=== PATIENT | female | born 1985 | race Caucasian/White ===

== ENCOUNTER → 2018-04-11 09:31 | Outpatient (REF) | payer BC, SELFPAY ==
--- NOTE | 2018-04-11 08:45 | PAPFT_PTH ---
PATIENT: Laura Carrillo LOC: [facility] U#:[id number] AGE/SX: 39/F ROOM: RE04/11/[address]: Shannan Connolly NP : 1985 BED: DIS: SPEC #: [id number] RECD: 04/11/18 12:51 STATUS: ENMANUEL GALLAGHER #: [id number] BOBBY: 04/11/18 08:[address]: Shannan Connolly NP DEPT: [facility] Cytology RECD BY: Alana Hill ENTERED: 04/11/18 12:51 SP TYPE: PAPFT OT DR: Paloma Steele APRN Tissues: 1 - CX/ENDOCX FOR PAP SMEARS Procedures: PAP THIN PREP/[facility] Screening HPV DNA PROBE Comments: [id number]
== END ==
LOC: LBN 09:31
PROVIDERS: PCP Nurse Practitioner; Visit Provider Nurse Practitioner Women's Health
DX: Z12.4 Encounter for screening for malignant neoplasm of cervix (principal); Z11.51 Encounter for screening for human papillomavirus (HPV)
CPT/HCPCS: 88142; 87624

== ENCOUNTER 2018-06-21 14:22 | Outpatient (REF) | payer BC, SELFPAY | END 2018-06-21 14:42 | LOC: LBN 14:22 | PROVIDERS: PCP Nurse Practitioner; Visit Provider Student in an Organized Health Care Education/Training Program | DX: J02.9 Acute pharyngitis, unspecified (principal) | CPT/HCPCS: 87070; 87205 ==

== ENCOUNTER 2020-07-12 12:52 | Outpatient (CLI) | payer BC, SELFPAY ==
[2020-07-15 14:35] LABS: Patient Race White; SARS-CoV-2 RNA Undetected (Undetected); SARS-CoV-2 Specimen Source Nasal
== END 2020-07-12 13:12 ==
PROVIDERS: PCP Nurse Practitioner; Visit Provider Nurse Practitioner
DX: R51.9 Headache, unspecified (principal)
CPT/HCPCS: U0003

== ENCOUNTER 2020-11-15 16:08 | Outpatient (REF) | payer OTHER, SELFPAY ==
--- NOTE | 2020-11-15 15:45 | PAPFT_PTH ---
PATIENT: Laura Carrillo LOC: [facility] U#:[id number] AGE/SX: 35/F ROOM: RE11/15/[address]: SELVIN Hernandez : 1985 BED: DIS: 11/15/2020 SPEC #: [id number] RECD: 11/15/20 17:31 STATUS: MELIANanette RENikky #: [id number] BOBBY: 11/15/20 15:[address]: Deanna Sidhu DEPT: [facility] Cytology RECD BY: Alana Hill ENTERED: 11/15/20 17:31 SP TYPE: PAPFT ELVIA DR: Paloma Steele APRN Tissues: 1 - CX/ENDOCX FOR PAP SMEARS Procedures: PAP THIN PREP/[facility]VM Screening HPV DNA PROBE Comments: [id number]
== END 2020-11-15 16:09 | disposition home or self-care (01) ==
LOC: LBN 16:08
PROVIDERS: PCP Nurse Practitioner; Visit Provider Nurse Practitioner Family
DX: Z12.4 Encounter for screening for malignant neoplasm of cervix (principal); Z11.51 Encounter for screening for human papillomavirus (HPV)
CPT/HCPCS: 88142; 87624

== ENCOUNTER 2020-11-18 02:56 | Outpatient (CLI) | payer OTHER, SELFPAY ==
[2020-11-18 09:41] LABS: HCT 40.8 % (36.0-46.0); HGB 13.1 g/dL (11.2-15.7); MCH 26.1 pg (27.0-33.0); MCHC 32.1 % (32.0-36.0); MCV 81.3 fL (80-95); MPV 9.1 fL (8.0-11.0); Platelet Count 269 10^3/uL (130-400); RBC 5.02 10^6/uL (3.93-5.22); RDW-SD 38.3 fL; WBC 6.15 10^3/uL (4.4-10.8)
[2020-11-18 10:20] LABS: ALT 29 U/L (14-59); AST 14 U/L (15-37); Albumin 3.9 g/dL (3.4-5.0); Alkaline Phosphatase 63 U/L (46-116); Anion Gap 12.3 mmol/L (3-11); BUN 14 mg/dL (7-18); Bilirubin, Total 0.3 mg/dL (0.2-1.0); CO2 21.7 mmol/L (21.0-32.0); CREATININE 0.9 mg/dL (0.55-1.02); Calcium 8.8 mg/dL (8.5-10.1); Calculated LDL 110 mg/dL (<100); Chloride 107 mmol/L (98-107); Cholesterol 163 mg/dL (<200); Glucose 90 mg/dL (74-106); HDL Cholesterol 43 mg/dL (40-60); Sodium 141 mmol/L (136-145); TSH (W/Ref FT4) 1.74 uIU/mL (0.36-3.74); Total Protein 7.7 g/dL (6.4-8.2); Triglyceride 52 mg/dL (<150)
[2020-11-18 12:38] LABS: C-Reactive Protein 0.23 mg/dL (0.0-0.3)
[2020-11-18 14:06] LABS: ESR 12 mm/hr (<or=20)
[2020-11-18 16:34] LABS: Rheumatoid Factor <8.6 IU/mL (<12.0)
[2020-11-19 11:52] LABS: Lyme Ab w Rflx to Lyme Confirm Negative (Negative)
[2020-11-22 14:51] LABS: ANA Interpretation Positive (Negative)
== END 2020-11-18 02:57 | disposition home or self-care (01) ==
LOC: LBO 02:57
PROVIDERS: PCP Nurse Practitioner; Visit Provider Nurse Practitioner
DX: I10 Essential (primary) hypertension (principal); R53.83 Other fatigue; M25.59 Pain in other specified joint; M25.69 Stiffness of other specified joint, not elsewhere classified; Z13.220 Encounter for screening for lipoid disorders
CPT/HCPCS: 36415; 80053; 80061; 85027; 85652; 84443; 86038; 86140; 86431; 86618

== ENCOUNTER 2021-03-09 07:36 | Outpatient (REF) | payer OTHER, SELFPAY ==
[2021-03-09 09:29] LABS: Bilirubin Negative (Negative); Blood Trace-intact (Negative); Clarity Clear (Clear); Glucose Negative (Negative); Ketones Negative (Negative); Leukocyte Esterase Negative (Negative); Nitrite Negative (Negative); Specific Gravity 1.025 (1.005-1.025); Urobilinogen 0.2 EU/dL (Up TO 0.2)
[2021-03-09 09:47] LABS: Epithelial Cells Many HPF (Negative); WBC 0-2 HPF (0-5)
[2021-03-09 09:48] LABS: Bacteria Few HPF (Negative); C & S Indicated? No/Sq. Contamination; Casts Negative LPF (Negative); Crystals Negative HPF (Negative); Mucus Negative (Negative)
== END 2021-03-09 07:37 | disposition home or self-care (01) ==
LOC: LBN 07:36
PROVIDERS: PCP Nurse Practitioner; Visit Provider Internal Medicine
DX: M25.59 Pain in other specified joint (principal); M79.18 Myalgia, other site; R76.8 Other specified abnormal immunological findings in serum; G89.29 Other chronic pain; M25.561 Pain in right knee; M25.562 Pain in left knee; R82.998 Other abnormal findings in urine
CPT/HCPCS: 81003; 81015

== ENCOUNTER 2021-03-16 03:13 | Outpatient (CLI) | payer OTHER, SELFPAY ==
[2021-03-16 09:04] LABS: ESR 20 mm/hr (0-20)
[2021-03-16 09:05] LABS: Abs Immature Grans 0.02 10^3/uL (0.0-0.06); Absolute Basophil Count 0.05 10^3/uL (0.0-0.2); Absolute Eosinophil Count 0.15 10^3/uL (0.0-0.7); Absolute Monocyte Count 0.34 10^3/uL (0.1-0.8); Absolute Neutrophil Count 3.55 10^3/uL (1.2-6.7); Basophils % 0.9; Eosinophils % 2.8; HCT 40.5 % (36.0-46.0); HGB 13.2 g/dL (11.2-15.7); Immature Grans % 0.4; MCH 25.9 pg (27.0-33.0); MCHC 32.6 % (32.0-36.0); MCV 79.4 fL (80-95); MPV 9.1 fL (8.0-11.0); Monocytes % 6.3; Neutrophils % 65.6; Nucleated RBC 0 %; Platelet Count 279 10^3/uL (130-400); RDW 12.7 % (11.7-14.6); RDW-SD 36.3 fL; WBC 5.41 10^3/uL (4.4-10.8)
[2021-03-16 09:58] LABS: ALT 29 U/L (14-59); AST 14 U/L (15-37); Alkaline Phosphatase 65 U/L (46-116); Bilirubin, Direct 0.1 mg/dL (0.0-0.2); Bilirubin, Total 0.2 mg/dL (0.2-1.0); C-Reactive Protein 0.24 mg/dL (0.0-0.3); Total Protein 7.5 g/dL (6.4-8.2)
[2021-03-17 09:31] LABS: C3 Complement 136 mg/dL (81-157); C4 Complement 34 mg/dL (13-39)
[2021-03-17 11:01] LABS: dsDNA Ab, IgG <12.3 IU/mL (<30.0)
[2021-03-17 13:19] LABS: G6PD Enzyme Activity 11.7 U/g Hb (8.0 - 11.9)
[2021-03-17 21:09] LABS: Phospholipid Ab, IgG <9.4 GPL; Phospholipid Ab, IgM <9.4 MPL
[2021-03-18 00:02] LABS: Dilute Russell Viper Venom 34.1 secs (31.9-47.0); LA Cascade Summary (See Note); Silica Clotting Time 42.4 secs (30.2-48.4)
[2021-03-18 15:57] LABS: Beta 2 Glycoprotein 1 Ab IgA <9.4 U/mL
== END 2021-03-16 03:14 | disposition home or self-care (01) ==
LOC: LBO 03:13
PROVIDERS: PCP Nurse Practitioner; Visit Provider Internal Medicine
DX: R76.8 Other specified abnormal immunological findings in serum (principal); G89.29 Other chronic pain; M25.561 Pain in right knee; M25.562 Pain in left knee; M25.59 Pain in other specified joint; M79.18 Myalgia, other site
CPT/HCPCS: 36415; 80076; 82955; 85652; 86146; 86147; 87116; 82565; 85025; 86140; 86160; 86225

== ENCOUNTER 2021-03-28 14:36 | Outpatient (REF) | payer OTHER, SELFPAY ==
[2021-03-30 13:51] LABS: COVID-19 RT-PCR UVMMC Result Negative (Negative)
== END 2021-03-28 14:37 | disposition home or self-care (01) ==
LOC: NCHCN 14:36
PROVIDERS: PCP Nurse Practitioner; Visit Provider Family Medicine
DX: Z20.822 Contact with and (suspected) exposure to COVID-19 (principal)
CPT/HCPCS: U0003

== ENCOUNTER 2021-06-22 04:41 | Outpatient (CLI) | payer OTHER, SELFPAY ==
[2021-06-22 08:58] LABS: Abs Immature Grans 0.03 10^3/uL (0.0-0.06); Absolute Basophil Count 0.06 10^3/uL (0.0-0.2); Absolute Eosinophil Count 0.24 10^3/uL (0.0-0.7); Absolute Lymphocyte Count 1.25 10^3/uL (1.2-3.4); Absolute Monocyte Count 0.38 10^3/uL (0.1-0.8); Basophils % 0.8; Eosinophils % 3.3; HCT 39.4 % (36.0-46.0); HGB 12.6 g/dL (11.2-15.7); Immature Grans % 0.4; Lymphocytes % 17.2; MCH 25.4 pg (27.0-33.0); MCV 79.4 fL (80-95); Monocytes % 5.2; Neutrophils % 73.1; Nucleated RBC 0 %; Platelet Count 263 10^3/uL (130-400); RBC 4.96 10^6/uL (3.93-5.22); RDW 13.4 % (11.7-14.6); RDW-SD 38.6 fL; WBC 7.26 10^3/uL (4.4-10.8)
[2021-06-22 09:00] LABS: ESR 23 mm/hr (0-20)
[2021-06-22 09:07] LABS: Bilirubin Negative (Negative); Blood Negative (Negative); Clarity Clear (Clear); Glucose Negative (Negative); Ketones Negative (Negative); Leukocyte Esterase Negative (Negative); Nitrite Negative (Negative); Specific Gravity >= 1.030 (1.005-1.025); Urobilinogen 0.2 EU/dL (Up TO 0.2)
[2021-06-22 09:40] LABS: ALT 39 U/L (14-59); AST 16 U/L (15-37); Albumin 3.8 g/dL (3.4-5.0); Alkaline Phosphatase 63 U/L (46-116); Bilirubin, Direct 0.1 mg/dL (0.0-0.2); Bilirubin, Total 0.4 mg/dL (0.2-1.0); C-Reactive Protein 0.36 mg/dL (0.0-0.3); CREATININE 0.8 mg/dL (0.55-1.02); Total Protein 7.2 g/dL (6.4-8.2)
[2021-06-23 09:46] LABS: C3 Complement 130 mg/dL (81-157)
[2021-06-23 11:33] LABS: dsDNA Ab, IgG <12.3 IU/mL (<30.0)
[2021-06-23 17:55] LABS: Complement, Total 74 U/mL (30-75)
== END 2021-06-22 04:42 | disposition home or self-care (01) ==
LOC: LBO 04:41
PROVIDERS: PCP Nurse Practitioner; Visit Provider Internal Medicine
DX: M25.59 Pain in other specified joint (principal); R76.8 Other specified abnormal immunological findings in serum; M79.18 Myalgia, other site; M22.2X1 Patellofemoral disorders, right knee; M25.561 Pain in right knee; M25.562 Pain in left knee; R82.90 Unspecified abnormal findings in urine; G89.29 Other chronic pain; M22.2X2 Patellofemoral disorders, left knee
CPT/HCPCS: 36415; 80076; 85652; 81003; 82565; 85025; 86140; 86160; 86162; 86225

== ENCOUNTER 2021-07-22 10:34 | Outpatient (REF) | payer OTHER, SELFPAY ==
[2021-07-23 01:17] LABS: COVID-19 RT-PCR UVMMC Result Negative (Negative)
== END 2021-07-22 10:35 | disposition home or self-care (01) ==
LOC: NCHCN 10:34
PROVIDERS: PCP Nurse Practitioner; Visit Provider Physician Assistant Medical
DX: Z20.822 Contact with and (suspected) exposure to COVID-19 (principal)
CPT/HCPCS: U0003

== ENCOUNTER 2021-07-29 11:25 | Outpatient (REF) | payer OTHER, SELFPAY ==
[2021-07-30 02:20] LABS: COVID-19 RT-PCR UVMMC Result Negative (Negative)
== END 2021-07-29 11:26 | disposition home or self-care (01) ==
LOC: NCHCN 11:25
PROVIDERS: PCP Nurse Practitioner; Visit Provider Nurse Practitioner Family
DX: Z20.822 Contact with and (suspected) exposure to COVID-19 (principal); R09.81 Nasal congestion
CPT/HCPCS: U0003

== ENCOUNTER 2021-08-15 10:55 | Outpatient (REF) | payer OTHER, SELFPAY ==
[2021-08-16 19:50] LABS: COVID-19 RT-PCR UVMMC Result Negative (Negative)
== END 2021-08-15 10:56 | disposition home or self-care (01) ==
LOC: NCHCN 10:55
PROVIDERS: PCP Nurse Practitioner; Visit Provider Physician Assistant Medical
DX: Z20.822 Contact with and (suspected) exposure to COVID-19 (principal); R09.81 Nasal congestion
CPT/HCPCS: U0003

== ENCOUNTER 2021-09-05 18:21 | Outpatient (REF) | payer OTHER, SELFPAY ==
[2021-09-07 22:10] LABS: COVID-19 RT-PCR UVMMC Result Positive (Negative)
== END 2021-09-05 18:22 | disposition home or self-care (01) ==
LOC: NCHCN 18:21
PROVIDERS: PCP Nurse Practitioner; Visit Provider Family Medicine
DX: Z20.822 Contact with and (suspected) exposure to COVID-19 (principal); J06.9 Acute upper respiratory infection, unspecified
CPT/HCPCS: U0003

== ENCOUNTER 2021-11-23 09:21 | Outpatient (CLI) | payer OTHER, SELFPAY ==
--- NOTE | 2021-11-23 09:00 | DI.RAD_ITS ---
Exam(s) XR KNEE LT 3V AP,LAT,DEEPAK EXAM: XR KNEE LT 3V AP,LAT,DEEPAK CLINICAL HISTORY: left knee pain TECHNIQUE: COMPARISON: No exams were available for comparison FINDINGS: Three views were obtained. There may be slight narrowing of the cartilaginous joint space of the med ial tibiofemoral joint. Otherwise cartilaginous joint spaces are well maintained. No joint effusion seen on the lateral view. No bony abnormality seen. IMPRESSION: Question slight degenerative thinning of medial tibiofemoral joint space RADIATION DOSE DELIVERED: Total DLP
== END 2021-11-23 09:22 | disposition home or self-care (01) ==
LOC: DIORS 09:22
PROVIDERS: PCP Nurse Practitioner; Referring Provider Nurse Practitioner; Visit Provider Student in an Organized Health Care Education/Training Program
DX: M25.562 Pain in left knee (principal); M25.862 Other specified joint disorders, left knee
CPT/HCPCS: 73562

== ENCOUNTER 2021-12-08 01:50 | Outpatient (CLI) | payer OTHER, SELFPAY ==
--- NOTE | 2021-12-08 06:45 | DI.MRI_ITS ---
Exam(s) MR LOWER JOINT LT WO EXAM: MR LOWER JOINT LT WO CLINICAL HISTORY: LEFT KNEE PAIN,tear medial meniscus,s83.242a TECHNIQUE: Multiplanar multisequence MRI was performed.. COMPARISON: No exams were available for comparison FINDINGS: MR examination of the knee was performed according to the usual protocol. There is no significant knee joint effusion. No significant bony signal abnormality seen. Medial tibiofemoral joint: The articular cartilage of the femur and tibia appears well maintained. T he meniscus and attachments appear intact. The medial collateral ligament appears intact. No quality control projectionist omedial corner injury seen. Lateral tibiofemoral joint: The articular cartilage of the femur and tibia appears well maintained. The meniscus and attachments appear intact. The lateral collateral ligament complex and posterolater al corner structures appear intact. Patellofemoral joint and extensor mechanism: The articular cartilage of the patellofemoral joint show s mildly abnormal signal at the median ridge. Grade 2 chondromalacia. Mildly abnormal signal also s een in marrow at the median ridge period. The superior and inferior patellar fat pads appear normal with no signal abnormality. The quadriceps tendon and patellar tendon appear intact with no evidence of a tear or significant vira ma. The medial and lateral retinacula appear intact. Cruciate ligaments: The posterior cruciate ligament shows normal signal. There is abnormal signal at the tibial attachment of the anterior cruciate ligament which may represent a partial-thickness tear . Apparent tiny cysts also present adjacent to the insertion. Tibiofibular joint: No specific abnormality involving the tibiofibular joint. IMPRESSION: Grade 2 patellar chondromalacia. Possible partial-thickness tear at ACL tibial attachment. No medial meniscal tear identified. DATA REPOSITORY:
== END 2021-12-08 02:10 ==
PROVIDERS: PCP Nurse Practitioner; Visit Provider Student in an Organized Health Care Education/Training Program
DX: M25.562 Pain in left knee (principal); S83.242A Other tear of medial meniscus, current injury, left knee, initial encounter; M22.42 Chondromalacia patellae, left knee; S83.512A Sprain of anterior cruciate ligament of left knee, initial encounter
CPT/HCPCS: 73721

== ENCOUNTER 2022-12-13 02:04 | Outpatient (CLI) | payer BC, SELFPAY ==
--- NOTE | 2022-12-13 06:45 | DI.RAD_ITS ---
Exam(s) XR ANKLE LT COMPLETE EXAM: XR ANKLE LT COMPLETE CLINICAL HISTORY: evaluate pathology,lt ankle pain, m25.572 TECHNIQUE: 2D digital imaging was performed of the left ankle. Three images were obtained. AP, lat eral and oblique views were obtained. COMPARISON: No exams were available for comparison FINDINGS: BONES: No acute fracture is present. No bony destructive lesion is seen. There is a tiny enthesophyte at the posterior calcaneus. JOINTS:The ankle mortise is normally aligned. SOFT TISSUE: Normal. IMPRESSION: No acute abnormality. DATA REPOSITORY: RADIATION DOSE DELIVERED:
== END 2022-12-13 02:24 ==
LOC: DI 02:04
PROVIDERS: PCP Nurse Practitioner; Visit Provider Nurse Practitioner Family
DX: M25.572 Pain in left ankle and joints of left foot (principal)
CPT/HCPCS: 73610

== ENCOUNTER 2023-02-20 10:23 | Outpatient (REF) | payer BC, SELFPAY ==
[2023-02-20 11:15] LABS: C Diff PCR Negative (Negative)
[2023-02-21 13:30] LABS: Helicobacter pylori Ag, Feces Negative (Negative)
== END 2023-02-20 10:24 | disposition home or self-care (01) ==
LOC: NCHCN 10:23
PROVIDERS: PCP Nurse Practitioner; Visit Provider Nurse Practitioner
DX: R19.7 Diarrhea, unspecified (principal); K21.9 Gastro-esophageal reflux disease without esophagitis
CPT/HCPCS: 87338; 87493; 87505; 87177

== ENCOUNTER 2023-06-22 16:41 | Outpatient (CLI) | payer BC, SELFPAY ==
[2023-06-22 16:26] LABS: Lipase 44 U/L (16-77)
[2023-06-22 16:30] LABS: ALT 29 U/L (14-59); AST 18 U/L (15-37); Albumin 3.8 g/dL (3.4-5.0); Alkaline Phosphatase 58 U/L (46-116); Anion Gap 11.4 mmol/L (3-11); BUN 12 mg/dL (7-18); Bilirubin, Total 0.2 mg/dL (0.2-1.0); CO2 20.6 mmol/L (21.0-32.0); CREATININE 0.9 mg/dL (0.55-1.02); Calcium 9.1 mg/dL (8.5-10.1); Chloride 106 mmol/L (98-107); Estimated GFR 84.97 (mL/min/1.73m2); Glucose 89 mg/dL (74-106); Potassium 3.3 mmol/L (3.5-5.1); Sodium 138 mmol/L (136-145); Total Protein 7.7 g/dL (6.4-8.2)
[2023-06-25 10:59] LABS: HIV-1/2 Ag & Ab Screen Negative (Negative)
[2023-06-25 13:41] LABS: Hepatitis C Ab w Rflx HCV PCR Negative (Negative)
== END 2023-06-22 16:42 | disposition home or self-care (01) ==
LOC: LBO 16:41
PROVIDERS: PCP Nurse Practitioner; Visit Provider Family Medicine
DX: R10.9 Unspecified abdominal pain (principal); Z11.59 Encounter for screening for other viral diseases
CPT/HCPCS: 36415; 80053; 83690; 86803; 87389

== ENCOUNTER 2023-08-02 15:00 | Outpatient (REF) | payer BC, SELFPAY | END 2023-08-02 15:01 | disposition home or self-care (01) | LOC: LBN 15:00 | PROVIDERS: PCP Nurse Practitioner; Visit Provider Advanced Practice Midwife | DX: N93.8 Other specified abnormal uterine and vaginal bleeding (principal) | CPT/HCPCS: 87480; 87510; 87660 ==

== ENCOUNTER 2023-08-17 08:14 | Day surgery (SDC) | payer BC, SELFPAY ==
--- NOTE | 2023-08-16 19:41 | W.PM.ENDDOP ---
Date of service: 08/17/23 Time of Service: 10:13 Endoscopy Report DATE OF PROCEDURE: 08/17/23 PRE-OP DIAGNOSIS: luq pain/gerd/chronic cough POST-OP DIAGNOSIS: other (bile reflux gastritis ) SURGEON: Loulou Ellis ANESTHESIA TYPE: General:No Airway ESTIMATED BLOOD LOSS: 1 PATHOLOGY: other COMPLICATIONS: None DISPOSITION: same day PROCEDURE DESCRIPTION: After informed consent was obtained the patient was take to the procedure room and placed in a supine position. Monitors were applied and a time out was done. The patients name, date of , procedure type, allergies to medications and metal in their body was reviewed. A bite block was placed and the patient was sedated. Once sedated and comfortable the gastroscope was advanced through the oropharynx which was grossly normal into the esophagus. The proximal and mid-esophagus were normal. In the distal esophagus there was no esophageal ulcer/varices/diverticula or stricture Noted. Upon entering the stomach, it is noted that she does have some fundic polyps. 1 of these was sampled. She does have gross bile reflux through the pylorus, and bile associated gastritis. The scope was advanced into the stomach and through the pylorus into the 3rd portion of the duodenum. The duodenum was noted to be normal. Biopsies were done, all specimens are retrieved and no bleeding is noted.. The scope was retracted back into the stomach and biopsies were done to rule out H. pylori. There were no ulcers. There is some mild gastritis radiating from the antrum in a striped fashion. The scope was retroflexed. The cardia and fundus were noted to be normal. There is no hiatal hernia noted. The scope was retracted back into the esophagus and biopsies were done of the GE junction to rule out Glover's. The Z line was regular. The GE junction was at 38 cm. The scope was removed and the patient was woken up and taken back to [facility] in stable condition.
--- NOTE | 2023-08-16 19:44 | PDOC.DSDIS_ITS ---
Date of service: 08/17/23 Time of Service: 10:21 Discharge Plan Disposition Patient Disposition: Home Condition: Good Discharge Details Reason For Visit: stomach scope Attending Provider: Loulou Ellis Primary Care Provider: Paloma Steele Home Meds and New Rx's Prescriptions: New sucralfate [Carafate] 1 gram tablet 1 g PO BID Qty: 60 12RF Continued prochlorperazine maleate 5 mg tablet 5 mg PO TID PRN (Reason: headaches) Qty: 30 3RF Rx Instructions: Take 1-2 tablets every 8 hours as needed for headaches or nausea sertraline 50 mg tablet 100 mg PO DAILY Qty: 180 3RF valacyclovir 1 gram tablet 2,000 mg PO BID PRN (Reason: cold sores) Qty: 12 2RF Rx Instructions: 2 tabs BID for two doses. May use PRN. norethindrone (contraceptive) 0.35 mg tablet 0.35 mg PO DAILY Qty: 84 5RF sodium fluoride-pot nitrate [PreviDent 5000 Sensitive] 100 ML paste 100 ml Dental DAILY loratadine 10 mg tablet 10 mg PO DAILY PRN fluticasone propionate 50 mcg/actuation spray,suspension 2 spray intranasal DAILY Qty: 15.8 12RF Rx Instructions: administer into each nostril levalbuterol tartrate [Xopenex HFA] 45 mcg/actuation HFA aerosol inhaler 1 - 2 puff Inhalation q6h PRN (Reason: shortness of breath or wheezing) Qty: 1 12RF topiramate 25 mg tablet See Rx Instructions .ROUTE .COMPLEX Qty: 90 3RF Dose Instruction: TAKE 1 TABLET BY MOUTH AT BEDTIME. TAKE WITH THE 50 MG FOR A TOTAL OF 75 MG Rx Instructions: TAKE 1 TABLET BY MOUTH AT BEDTIME. TAKE WITH THE 50 MG FOR A TOTAL OF 75 MG topiramate 50 mg tablet See Rx Instructions .ROUTE .COMPLEX Qty: 90 3RF Dose Instruction: TAKE 1 TABLET BY MOUTH AT BEDTIME. TAKE WITH 25 MG FOR A TOTAL OF 75 MG Rx Instructions: TAKE 1 TABLET BY MOUTH AT BEDTIME. TAKE WITH 25 MG FOR A TOTAL OF 75 MG Discontinued pantoprazole [Protonix] 40 mg tablet,delayed release (DR/EC) 40 mg PO DAILY Qty: 90 6RF ibuprofen 200 mg tablet 800 mg PO PRN Discharge Instructions Additional Instructions: Post EGD Instruction ?You had anesthesia for your EGD/stomach scope today.? For your safety, please do the following for the next twenty-four (24) hours: Do Not operate a motor vehicle (car, truck, motorcycle, etc.) Do Not drink alcoholic beverages or use any recreational drugs for the first 24 hours or while taking pain medications. The medications in your body may have a reaction that can be dangerous. Do Not make any important decisions or sign any important papers You have just had a gastroscopy (EGD) or upper GI tract examination. It is important for your smooth recovery that you carefully follow the recommendations below. Do not hesitate to call if any questions should arise about your anesthesia, condition, or care. -Symptoms you may experience during the next 24 hours: ?1. Mild abdominal pain or excessive gas or a bloated feeling which improves with rest, liquids, eating? slightly, and walking as tolerated. 2. Drowsiness and/or forgetfulness because of the medications you were given. ?3. Throat numbness for about 1 hour. 4. A sore throat which you can treat with throat lozenges or by gargling with salt water 4-5 times a day. 5. Redness at the site of your IV which you can treat with warm compresses. SPECIAL INSTRUCTIONS: 1. You may resume your previous diet in one hour. We recommend a light meal to start, then progress as tolerated. 2. Restart regular medications in one hour. 3. No aspirin or non-steroidal containing medication for three days. 4. No lifting over 20 pounds or strenuous activity for the first 24 hours after your procedure. After 24 hours there are no restrictions on your activity, but you may feel fatigued for a few days. Findings: bile reflux gastritis Medications: carafate twice dialy -Continue to follow lifestyle modifications: No alcohol, tobacco products, Aspirin or NSAID's (ibuprofen, Motrin, Naprosyn, aleve, etc).? Try to limit/avoid:? soda pop/any carbonated beverages, caffeine (including tea & chocolate), and acidic foods, (tomatoes, citrus, onions, peppermints) spicy or fried/fatty foods. Do not lie down for 30 minutes after eating, and do not eat 2 hours prior to bedtime. Avoid wearing tight fitting clothing/ belts. Follow up: 4-6 wks Call the office at [phone] (Office) or [phone] (Hospital), or go to the ER right away if you notice any of the followin. Vomiting blood and /or ?coffee ground? material. ?2. Worsening of abdominal pain or cramping. ?3. Trouble with breathing, cough, and/or fever (temperature above 101.5 F). 4. Increasing pain with swallowing. ?5. Chest pain. 6. Any new symptoms. 7. Worsening of the redness at the IV site Stand Alone Forms: Anesthesia Discharge Hardik Viveros (DSU) Activity:: see above Diet:: see above Discharge Orders Discharge Orders: Discharge Order (Routine); Ordered 08/17/23 Ordered By: Loulou Ellis DS: Diagnosis Discharge Diagnosis (1) DUB (dysfunctional uterine bleeding): Status: Acute (2) Pelvic pain: Status: Acute (3) Asthma: Status: Chronic (4) BMI 38.0-38.9,adult: Status: Acute (5) Abdominal discomfort in left upper quadrant: Status: Acute (6) Migraine with aura: Status: Chronic (7) GERD (gastroesophageal reflux disease): Status: Chronic (8) Bile reflux gastritis: Status: Acute Asessment and Plan: Patient is seen and examined after they are endoscopy.? Patient has minimal sore throat.? They have been able to tolerate liquids.? They do not have any nausea vomiting.? They are not having any chest pain or shortness of breath.? They have been able to pass gas and are not having any abdominal pain or distention.? They have not vomited any blood.? The vital signs have been stable-see nursing notes. We discussed findings on their endoscopy. We reviewed the importance of lifestyle modification-see discharge instructions We reviewed any new medications that the patient may be prescribed-see discharge instructions Patient will either be sent a letter with the biopsy results or follow-up in the office-see discharge instructions. Patient was given explicit instructions to follow-up regarding post endoscopy- refer to discharge Patient verbalized understanding and discharged in stable and satisfactory condition.? See nursing notes.
[2023-08-17 08:27] VITALS: BP 134/89; PULSE 84; RESP 16; TEMP 36.6; O2SAT 97
[2023-08-17] MEDS: Lactated Ringers 1,000 ML 80 ML IV (08:54)
--- NOTE | 2023-08-17 09:08 | W.ANESPRE ---
General Info Date of Service Date Performed: 08/17/23 Height: 5 ft 4 in Weight: 97.4 kg Body Mass Index (BMI): 36.8 Surgical Procedure: Operation Date: 08/17/23 09:05 Proposed Procedure Side Surgeon p Gastroscopy Loulou Ellis, DO Meds Allergies and Home Medications Allergies Allergy/AdvReac Type Severity Reaction Status Date / Time albuterol sulfate AdvReac palpitation Verified 08/17/23 08:34 [From [facility]] s Home Medication Medication Instructions Recorded sodium fluoride 1.1 %-potassium 100 ml dental DAILY 05/24/17 nitrate 5 % dental paste (PreviDent 5000 Sensitive) ibuprofen 200 mg tablet 800 mg PO PRN 08/05/19 loratadine 10 mg tablet 10 mg PO DAILY PRN 08/05/19 prochlorperazine maleate 5 mg 5 mg PO TID PRN headaches #30 tabs 12/13/21 tablet fluticasone propionate 50 2 spray intranasal DAILY #15.8 mL 06/28/22 mcg/actuation nasal spray,suspension levalbuterol tartrate 45 1 - 2 puff inhalation q6h PRN 06/28/22 mcg/actuation aerosol inhaler shortness of breath or wheezing ##1 (Xopenex HFA) sertraline 50 mg tablet 100 mg (2 x 50 mg) PO DAILY #180 07/19/22 tabs valacyclovir 1 gram tablet 2,000 mg (2 x 1 gram) PO BID PRN 07/19/22 cold sores #12 tabs norethindrone (contraceptive) 0.35 0.35 mg PO DAILY #84 tabs 11/20/22 mg tablet topiramate 25 mg tablet See Rx Instructions .Route 06/19/23 .COMPLEX #90 tabs topiramate 50 mg tablet See Rx Instructions .Route 06/19/23 .COMPLEX #90 tabs pantoprazole 40 mg tablet,delayed 40 mg PO DAILY #90 tabs 07/30/23 release (Protonix) Current Visit Medications: Current Medications Generic Name Dose Route Start Last Admin Trade Name Freq PRN Reason Stop Dose Admin Hyoscyamine Sulfate 0.125 mg 08/17/23 07:39 Hyoscyamine 0.125 Mg Sl/Oral/Chew SL 09/16/23 07:38 DIRECTED PRN Ringer's Solution 1,000 mls @ 80 mls/hr 08/17/23 06:00 08/17/23 08:54 IV 08/17/23 23:59 80 mls/hr INFUSION EMERITA Administration IV Miscellaneous Supplies 1 each 08/17/23 06:00 Iv Access IV 08/17/23 23:59 DIRECTED EMERITA Ondansetron HCl 4 mg 08/17/23 07:39 Ondansetron 4 Mg/2 Ml Vial IVP 09/16/23 07:38 Q4H PRN PRN Nausea / Vomiting Sodium Chloride 0 ml 08/17/23 06:00 Normal Saline Flush 10 Ml Syr IV 08/17/23 23:59 PRN PRN Sodium Chloride 0 ml 08/17/23 06:00 Normal Saline 10 Ml Vial IJ 08/17/23 23:59 DIRECTED PRN Sterile Water 0 ml 08/17/23 06:00 Water,Injection,Sterile 10 Ml Vial IJ 08/17/23 23:59 DIRECTED PRN PFSH Active Problems Active Problems: Problem Status Onset Code Vaginal discharge N89.8 DUB (dysfunctional uterine bleeding) N93.8 Pelvic pain R10.2 Asthma J45.909 BMI 38.0-38.9,adult Z68.38 Abdominal discomfort in left upper quadrant R10.12 Paresthesia of hand, bilateral R20.2 Bilateral carpal tunnel syndrome G56.03 Neck pain of over 3 months duration M54.2 Chondromalacia, left knee M94.262 Neck pain, bilateral M54.2 Jaw pain R68.84 Status migrainosus G43.901 Abnormal urine R82.90 Chronic pain of left knee M25.562, G89.29 Chronic pain of right knee M25.561, G89.29 Patellofemoral stress syndrome M22.2X9 Myalgia M79.10 Seasonal allergic rhinitis J30.2 Paresthesia of both feet R20.2 Verruca plantaris B07.0 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 Neoplasm of uncertain behavior, unspecified D48.9 Posterior auricular pain of right ear H92.01 Positive JAMES (antinuclear antibody) R76.8 Skin lesions L98.9 Screening for cholesterol level Z13.220 Fatigue R53.83 Joint stiffness M25.60 Joint pain M25.50 Routine medical exam Z00.00 Headache R51.9 Cough R05 Migraine headache without aura G43.009 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 Oral contraceptive use 04/11/18 Z30.41 Migraine with aura 05/08/13 G43.109 GERD (gastroesophageal reflux disease) K21.9 Medical History Medical History Heartburn (05/08/13) ranitidine 150mg BID Allergic rhinitis Migraines Epistaxis Surgical History Surgical History Cholecystectomy 2006 section 08/2010 x2 Tobacco Smoking/Tobacco Use Status: Former Tobacco Use Passive smoking exposure: No Second hand exposure: No Alcohol Alcohol Intake: current Alcohol intake frequency: a few times a month Alcohol type: hard liquor Substance Use Substance use: Never Substance use type: does not use Prental History History 3 Para 3 Hx # Term Pregnancies Multiple births Hx # Pregnancies Ectopic pregnancies AB induced Hx Number of Living Children AB spontaneous Vital Signs and Lab Results Vital Signs Most Recent Vital Signs in EMR: Most Recent Vital Signs Temp Pulse Resp BP Pulse Ox 36.6 C 84 16 134/89 97 08/17/23 08:27 08/17/23 08:27 08/17/23 08:27 08/17/23 08:27 08/17/23 08:27 Point of Care Results Point of Care Results: POC- Test(urine) Negative 08/17/23 08:33 Lab Results Blood Type / Crossmatch: No Data to Display Complete Blood Count: No Data to Display Complete Metabolic Panel: No Data to Display Liver Function Panel: No Data to Display Coagulation Panel: No Data to Display Cardiac Panel: No Data to Display Arterial Blood Gas: No Data to Display Venous Blood Gas: No Data to Display Pancreas Panel: No Data to Display Thyroid Panel: No Data to Display Infectious Disease: No Data to Display Blood Cultures: No Data to Display Toxicology Panel: No Data to Display Panel: Urine HCG, Qualitative Negative 08/02/23 14:06 Imaging and Studies Imaging and Studies Study information below may be from another EMR and interpreted by another provider. Please see original notes in EMR for more complete details. Echocardiogram Summary: EF 60-65% WNL 04/17/17 Pulmonary Function Summary: IMPRESSION Normal pulmonary function study. If the diagnosis of asthma is in question, proceeding with Methacholine challenge testing may prove to be useful, therefore clinical correlation recommended. 04/19/17 Anesthesia Assessment and Plan Anesthesia History Personal History: No History of Anesthesia Complications Family History: No Family History of Anesthesia Complications Exercise Tolerance Exercise Tolerance: Metabolic Equivalents>4 Pertinent Negatives Pertinent Negatives: No Major Cardiovascular Symptoms or Complaints and No Major Pulmonary Symptoms or Complaints Cardiac & Pulmonary Exam Cardiac Exam: Normal S1/S2 Heart Sounds Pulmonary Exam: Clear Bilateral Breath Sounds Implantable Cardiac Device Does patient have a Pacemaker or an ICD?: No Airway Exam Known Difficult Airway: No Mallampati Class: 4 Mouth Opening: Normal (> 3cm) Thyromental Distance: Greater than 3 cm Neck Range of Motion: Limited ROM (limited side to side to left) Neck Circumference: Thick Teeth Condition: Normal Dentition ASA Classification ASA Score: ASA 2 Emergency Case?: No NPO Status NPO Status: NPO Clears >2 hours, Solids >8 hours Status Status: Negative HCG Anesthesia Plan Resuscitation Status: Full Code Anesthesia Technique: General Anesthesia Airway Planned: Natural Airway Monitors Used: Standard Monitors
[2023-08-17 09:34] VITALS: BMI 36.8
--- NOTE | 2023-08-17 09:56 | STOM_PTH ---
PATIENT: Laura Carrillo LOC: [facility] U#:[id number] AGE/SX: 37/F ROOM: RE08/17/[address]: Loulou Ellis : 1985 BED: DIS: 08/17/2023 SPEC #: [id number] RECD: 08/17/23 12:45 STATUS: ENMANUEL [facility] #: [id number] BOBBY: 08/17/23 09:[address]: Loulou Ellis DEPT: Surgical Specimen RECD BY: Alana Hill ENTERED: 08/17/23 12:46 SP TYPE: STOMACH OTHR DR: Paloma Steele APRN Tissues: 1 - BIOPSY BOWEL 2 - STOMACH BIOPSY 3 - STOMACH BIOPSY 4 - ESOPHAGUS BIOPSY 5 - ESOPHAGUS BIOPSY Procedures: GROSS AND MICRO LEVEL 4 Comments: [id number]
[2023-08-17 10:07] VITALS: BP 106/71; PULSE 72; RESP 16; TEMP 36.6; O2SAT 94
[2023-08-17 10:37] VITALS: BP 125/87; PULSE 68; RESP 16; TEMP 36.8; O2SAT 99
--- NOTE | 2023-08-17 11:09 | W.ANESPOSTOP ---
Postoperative Evaluation Date, Time and Location Date Performed: 08/17/23 Time Performed: 11:10 Patient Location: Day Surgery Unit Vital Signs Most Recent Imported Vital Signs: Most Recent Vital Signs Temp Pulse Resp BP Pulse Ox 36.8 C 68 16 125/87 99 08/17/23 10:37 08/17/23 10:37 08/17/23 10:37 08/17/23 10:37 08/17/23 10:37 Pain Score Most Recent Pain Score: Most Recent Pain Score Pain Level 0 08/17/23 10:37 Assessment Mental Status: Awake (Alert & Oriented to Patient Baseline) Airway and Respiratory Function: Patent airway with normal (patient baseline) respiratory exam Cardiovascular Function: Hemodynamically Stable Hydration Status: Adequately Hydrated Nausea & Vomiting: No Nausea or Vomiting Pain: Pt. Denies Any Pain Peripheral Nerve Block: Patient did not receive a nerve block
== END 2023-08-17 11:18 | disposition home or self-care (01) ==
LOC: SUR 08:14
PROVIDERS: PCP Nurse Practitioner; Visit Provider Surgery
PROC: 0DJ68ZZ Inspection of Stomach, Via Natural or Artificial Opening Endoscopic (ICD-10-PCS; CPT 43235; principal; 2023-08-17 09:00)
DX: R10.12 Left upper quadrant pain (principal); K21.00 Gastro-esophageal reflux disease with esophagitis, without bleeding; K29.60 Other gastritis without bleeding; R05.9 Cough, unspecified; K31.7 Polyp of stomach and duodenum
CPT/HCPCS: 43239; 81025; 88305; J2001; J2405

== ENCOUNTER → 2023-09-27 13:01 | Outpatient (CLI) | payer BC, SELFPAY ==
--- NOTE | 2023-09-27 12:15 | DI.RAD_ITS ---
Exam(s) XR RIBS RT W PA LAT CHEST EXAM: XR RIBS RT W PA LAT CHEST CLINICAL HISTORY: r/o fx (R rib 5/6?), RT SIDE RIB PAIN, FALL, R07.81, W19.XXXA TECHNIQUE: 2D digital imaging was performed. COMPARISON: No exams were available for comparison FINDINGS: TOTAL 6 VIEWS: RIBS 4 VIEWS-RIGHT There are no obvious acute rib fractures evident. No lytic rib lesions identified. CXR- 2 VIEWS: No lung contusion or pneumothorax. There is no pleural effusion evident. Heart size is normal and there is no significant mediastinal widening. IMPRESSION: 1. No obvious rib fractures evident. Also no significant rib lesions. 2. No ipsilateral lung nor pleural abnormality evident. No pneumothorax. DATA REPOSITORY: RADIATION DOSE DELIVERED:
--- NOTE | 2023-09-27 12:15 | DI.RAD_ITS ---
Exam(s) XR CLAVICLE RT EXAM: XR CLAVICLE RT CLINICAL HISTORY: Pain R AC joint; r/o fx, FALL, RT ANTERIOR SHOULDER PAIN, PAIN RT CLAVICLE. TECHNIQUE: 2D digital imaging was performed. COMPARISON: CR XR SHOULDER RT COMPLETE 2+V from 09/27/2023 FINDINGS: Two views. No evidence of clavicle fracture. No AC joint dislocation. Bone density normal. IMPRESSION: No clavicle fracture seen. DATA REPOSITORY: RADIATION DOSE DELIVERED:
--- NOTE | 2023-09-27 12:15 | DI.RAD_ITS ---
Exam(s) XR SHOULDER RT COMPLETE 2+V EXAM: XR SHOULDER RT COMPLETE 2+V CLINICAL HISTORY: r/o fx, FALL, RT ANTERIOR SHOULDER PAIN, PAIN RT CLAVICLE, W19.XXXA. TECHNIQUE: 2D digital imaging was performed. COMPARISON: No exams were available for comparison FINDINGS: Five views. No evidence of fracture or dislocation of the glenohumeral joint. No soft tissue calcifications nor diminution of the subacromial space. Clavicle and AC joint appear unremarkable. Coracoid process un remarkable. IMPRESSION: No significant osseous findings in the right shoulder. DATA REPOSITORY: RADIATION DOSE DELIVERED:
== END ==
PROVIDERS: PCP Nurse Practitioner; Visit Provider Nurse Practitioner Adult Health
DX: M25.511 Pain in right shoulder (principal); M89.8X1 Other specified disorders of bone, shoulder; W19.XXXA Unspecified fall, initial encounter; R07.81 Pleurodynia
CPT/HCPCS: 71046; 71100; 73000; 73030

== ENCOUNTER → 2023-11-08 02:48 | Outpatient (CLI) | payer BC, SELFPAY ==
--- NOTE | 2023-11-08 15:00 | DI.RAD_ITS ---
Exam(s) XR FOOT LT COMPLETE EXAM: XR FOOT LT COMPLETE CLINICAL HISTORY: left foot pain, toe numbness,m79.672. TECHNIQUE: 2D digital imaging was performed. COMPARISON: No exams were available for comparison FINDINGS: 3 views There is no evidence of acute fracture or diastasis of the Lisfranc joint. Great toe metatarsophalan geal joint appears unremarkable. On the medial aspect of the foot there is an osteophytic density wh ich is probably a sesamoid bone within the distal tibialis posterior tendon or accessory ossicle at t he navicular tuberosity left. There are no degenerative changes in the articulations of the foot. N o inferior calcaneal spur. No enthesophytes. Bone density normal. No pes planus. IMPRESSION: Mild findings as above. DATA REPOSITORY: RADIATION DOSE DELIVERED:
== END ==
PROVIDERS: PCP Nurse Practitioner; Visit Provider Podiatrist
DX: M79.672 Pain in left foot (principal)
CPT/HCPCS: 73630

== ENCOUNTER 2023-12-11 14:29 | Outpatient (REF) | payer BC, SELFPAY ==
--- NOTE | 2023-12-11 14:10 | PAPFT_PTH ---
PATIENT: Laura Carrillo LOC: [facility] U#:[id number] AGE/SX: 38/F ROOM: RE12/11/[address]: Shannan Connolly NP : 1985 BED: DIS: 12/11/2023 SPEC #: [id number] RECD: 12/11/23 16:53 STATUS: ENMANUEL RENikky #: [id number] BOBBY: 12/11/23 14:[address]: Shannan Connolly NP DEPT: [facility] Cytology RECD BY: Alana Hill ENTERED: 12/11/23 16:54 SP TYPE: PAPFT OT DR: Paloma Steele APRN Tissues: 1 - CX/ENDOCX FOR PAP SMEARS Procedures: PAP THIN PREP/[facility] Screening HPV DNA PROBE Comments: [id number]
== END 2023-12-11 14:30 | disposition home or self-care (01) ==
LOC: LBN 14:29
PROVIDERS: PCP Nurse Practitioner; Visit Provider Nurse Practitioner Women's Health
DX: Z01.419 Encounter for gynecological examination (general) (routine) without abnormal findings (principal); N98.8 Other complications associated with artificial fertilization; Z12.4 Encounter for screening for malignant neoplasm of cervix
CPT/HCPCS: 88142; 87624

== ENCOUNTER 2024-02-08 15:34 | Outpatient (REF) | payer BC, SELFPAY ==
[2024-02-08 16:21] LABS: Hemoglobin A1C 5.4 % (<5.7)
[2024-02-08 16:54] LABS: TSH (W/Ref FT4) 1.62 uIU/mL (0.36-3.74); Vitamin B12 677 pg/mL (193-986)
[2024-02-11 13:47] LABS: Albumin 60.3 % (55.8-66.1); Albumin g/dL 4.5 g/dL (3.6-5.2); Total Protein 7.5 g/dL (6.3-8.2)
== END 2024-02-08 15:35 | disposition home or self-care (01) ==
LOC: NCHCN 15:34
PROVIDERS: Psychiatry & Neurology Neurology; PCP Nurse Practitioner; Visit Provider Nurse Practitioner Family
DX: G62.9 Polyneuropathy, unspecified (principal); R73.9 Hyperglycemia, unspecified
CPT/HCPCS: 82607; 83036; 84165; 84443

== ENCOUNTER 2024-07-15 09:15 | Day surgery (SDC) | payer BC, SELFPAY ==
[2024-07-15] VITALS (12 sets, daily range): BP systolic 112–122; BP diastolic 72–88; PULSE 73–97; RESP 11–21; TEMP 36–37.1; O2SAT 88–100; BMI 33.6
--- NOTE | 2024-07-15 09:27 | W.PM.DSUDISC ---
Date of service: 07/15/24 Time of Service: 09:33 Discharge Plan Disposition Patient Disposition: Home Condition: Good Discharge Details Reason For Visit: Left cubital and carpal tunnel syndromes Attending Provider: Telly Engel Primary Care Provider: Paloma Steele Home Meds and New Rx's Prescriptions: New acetaminophen 500 mg tablet 1,000 mg PO Q8H PRN Qty: 90 0RF Rx Instructions: Take two tablets up to every 8 hours as needed for pain hydrocodone-acetaminophen 5-325 mg tablet 1 tab PO Q6H PRN (Reason: severe pain) Qty: 6 0RF Rx Instructions: Take one tablet up to every 6 hours as needed for severe postoperative pain ibuprofen 600 mg tablet 600 mg PO TID PRN (Reason: pain) Qty: 60 0RF Continued prochlorperazine maleate 5 mg tablet 5 mg PO TID PRN (Reason: headaches) Qty: 30 3RF Rx Instructions: Take 1-2 tablets every 8 hours as needed for headaches or nausea [place] Saline 0.65 % drops 2 drp intranasal QID PRN (Reason: dry nasal passages) Qty: 50 1RF acetylcysteine 500 mg capsule 1,000 mg PO DAILY valacyclovir 1 gram tablet 2,000 mg PO BID PRN (Reason: cold sores) Qty: 12 2RF Rx Instructions: 2 tabs BID for two doses. May use PRN. ketoconazole 2 % cream 1 applic topical DAILY Qty: 120 6RF Rx Instructions: Apply to toenails once daily semaglutide (weight loss) 2.4 mg/0.75 mL pen injector 2.4 mg subcut Q7D Qty: 3 8RF sertraline 50 mg tablet 100 mg PO DAILY Qty: 180 3RF pantoprazole [Protonix] 40 mg tablet,delayed release (DR/EC) 40 mg PO DAILY Qty: 90 3RF fluticasone propionate 50 mcg/actuation spray,suspension 2 spray intranasal DAILY Qty: 15.8 12RF Rx Instructions: administer into each nostril sodium fluoride-pot nitrate [PreviDent 5000 Sensitive] 100 ML paste 100 ml Dental DAILY loratadine 10 mg tablet 10 mg PO DAILY PRN levalbuterol tartrate [Xopenex HFA] 45 mcg/actuation HFA aerosol inhaler 1 - 2 puff Inhalation q6h PRN (Reason: shortness of breath or wheezing) Qty: 1 12RF norethindrone (contraceptive) [Jencycla] 0.35 mg tablet 0.35 mg PO DAILY Qty: 84 3RF topiramate [Topamax] 100 mg tablet 100 mg PO QHS Qty: 90 3RF Discharge Instructions Additional Instructions: Carpal Tunnel Release and Cubital Tunnel Decompression Discharge Instructions Activity: You should stay in the sling for the first 2 weeks. You may come out of the sling for gentle motion and hygiene but should largely remain in the sling to allow the incision site to heal. Gentle motion of the elbow, hand, wrist, and fingers is okay and encouraged after the first few days, but no repetitive activites nor heavy lifting. You may apply ice. Medications: - You should take Tylenol and Ibuprofen around the clock. - You have been prescribed Hydrocodone for breakthrough pain. Dressings: - The initial surgical dressing should stay in place for 3 days. It may then be removed and kept clean and dry. You should cover with a light gauze dressing. - You may shower after 3 days and get the wound wet. Follow-up: 10 days Referrals: Telly Engel MD [ [facility]YSIC[facility]] - Equipment/Supplies: Sling Activity:: Activity as Tolerated Remove Dressings/Wound Care:: 72 hours Shower/Bathe:: 72 hours Diet:: As Tolerated Discharge Orders Discharge Orders: Discharge Order (Routine); Ordered 07/15/24 Ordered By: Loulou Heck
--- NOTE | 2024-07-15 09:36 | W.PREOPHP ---
Documented by User: Loulou Heck 07/15/24 09:56 Assessment and Plan Assessment and plan (1) Left carpal tunnel syndrome: Status: Acute (2) Cubital tunnel syndrome on left: Status: Acute Assessment and plan: Plan: Educated patient on surgery covering surgical technique, recovery process, benefits and risks including but not limited to risk of infection, blood clot, damage to soft tissue/blood vessels/nerves in detail. After discussion patient gives verbal understanding of risks and elects to proceed with scheduling surgery. Patient had opportunity to have questions answered to their satisfaction. They will contact office if issues arise. Patient will continue to be scheduled for Left endoscopic carpal tunnel release and left cubital tunnel decompression with possible anterior transposition with Dr. Engel History of Present Illness Narrative: Ms. Carrillo is a 38-year-old female who presents to hospital for scheduled left carpal tunnel release and left cubital tunnel decompression with possible anterior transposition. Patient denies any medical changes since her last orthopedic appointment. For full details please review her 2 previous orthopedic notes. Denies any medical changes. Due to continued paresthesias despite adequate trial of conservative therapies she wishes to proceed with surgical intervention. Review of Systems Cardiovascular Cardiovascular: Denies chest pain and Denies dyspnea Respiratory Respiratory: Denies cough and Denies dyspnea PFSH All Active Problems Cubital tunnel syndrome on left (Acute) Left carpal tunnel syndrome (Acute) Tinea pedis (Acute) Ovarian cyst (Acute) Right. 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) RUQ abdominal pain (Acute) Bile reflux gastritis (Acute) Pelvic pain (Acute) Asthma (Chronic) BMI 38.0-38.9,adult (Acute) Paresthesia of hand, bilateral (Acute) Bilateral carpal tunnel syndrome (Acute) Neck pain of over 3 months duration (Acute) Chondromalacia, left knee (Acute) Neck pain, bilateral (Acute) Jaw pain (Acute) Status migrainosus (Acute) Chronic pain of left knee (Acute) [place] [facility] [place] Chronic pain of right knee (Acute) [place] [facility] [place] Patellofemoral stress syndrome (Acute) [place] [facility] [place]21 Myalgia (Acute) [place] [facility] [place]21 Seasonal allergic rhinitis (Acute) Paresthesia of both feet (Acute) Verruca plantaris (Acute) 12/08/20 [place] [facility] [place] 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) 12/08/20 [facility] [place] Neoplasm of uncertain behavior, unspecified (Acute) 12/08/20 [facility] [place] done Posterior auricular pain of right ear (Acute) 12/08/20 [facility] [place] - pressure reducing strategies provided Positive JAMES (antinuclear antibody) (Acute) Skin lesions (Acute) Screening for cholesterol level (Acute) Fatigue (Acute) Joint stiffness (Acute) Joint pain (Acute) Routine medical exam (Acute) Headache (Acute) Cough (Acute) Migraine headache without aura (Acute) 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 Results will not change outcome. Migraine with aura (Chronic 05/08/13) Rare; Visual auras NEG MRI 2012 GERD (gastroesophageal reflux disease) (Chronic) Medical History Abnormal [place] [facility] [place] Abdominal discomfort in left upper quadrant Heartburn (05/08/13) ranitidine 150mg BID Allergic rhinitis Migraines Epistaxis Surgical History History of esophagogastroduodenoscopy (~07/2023) path Cholecystectomy 2006 section 08/2010 x2 Family History Mother Essential hypertension Father Rheumatoid arthritis Esophageal cyst Sister Diabetes Not sure type Brain tumor (benign) Sister Essential hypertension Asthma Paternal Grandmother , of PE Diabetes Pulmonary embolism Maternal Grandfather Myocardial infarct Social History Smoking/Tobacco Use Status: Former Tobacco Use Quit Date: 08/27/08 Tobacco: How many years used: 5 Second Hand Exposure: No Smoking risk assessment performed?: Yes Alcohol Intake: current Alcohol Intake frequency: a few times a month Alcohol type: hard liquor Drug use: Never Substance use type: does not use Adopted: No Caregiver/Support person: No Foster care: No Household members: spouse and children Housing: house Number of Children: 2 number of grandchildren: 0 Communication Needs: None Education Level: middle school Do you need help understanding health information?: Rarely 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 Pets and animals: Yes (cats, dogs, rabbit, chicken) Sexually active: Yes Do you think of yourself as: straight/heterosexual Current gender identity: female What is your relationship status?: How often do you talk on the phone with friends or family?: once per week How often do you get together with friends or relatives?: once per week Do you belong to any clubs or organized social groups?: no Panel score (0-1 are the most socially isolated patients): 1 What type of physical activity do you participate in: walking Duration: 15-30 minutes/day Frequency: 1-2 times per week Special curtis needs: No Seatbelt use: always Helmet use: Yes Helmet use: always Drive intox or ride w/intox pile driver: No Working smoke detector in home: Yes Fire extinguisher in home: Yes Carbon monox detector in home: Yes Do you feel safe at home: Yes Do you feel safe in your relationship?: Yes Victim of physical abuse: No Victim of emotional abuse: No Female Reproductive History Menstrual control method: other (partner with vasectomy) History History 3 Para 3 Hx # Term Pregnancies Multiple births Hx # Pregnancies Ectopic pregnancies AB induced Hx Number of Living Children AB spontaneous Meds Allergies and Home Medications Allergies Allergy/AdvReac Type Severity Reaction Status Date / Time albuterol sulfate (From AdvReac palpitation Verified 07/15/24 09:46 Ventolin HFA) s Home Medications ?Medication ?Instructions ?Recorded ?Confirmed ?Type sodium fluoride 1.1 %-potassium 100 ml dental DAILY 05/24/17 07/15/24 History nitrate 5 % dental paste (PreviDent 5000 Sensitive) loratadine 10 mg tablet 10 mg PO DAILY PRN 08/05/19 07/15/24 History levalbuterol tartrate 45 1 - 2 puff inhalation q6h PRN 06/28/22 07/15/24 Rx mcg/actuation aerosol inhaler shortness of breath or wheezing ##1 (Xopenex HFA) sodium chloride 0.65 % nasal drops 2 drp intranasal QID PRN dry nasal 11/22/23 07/15/24 Rx ([place] Saline) passages #50 mL acetylcysteine 500 mg capsule 1,000 mg PO DAILY 11/26/23 07/15/24 History valacyclovir 1 gram tablet 2,000 mg (2 x 1 gram) PO BID PRN 12/04/23 07/15/24 Rx cold sores #12 tabs norethindrone (contraceptive) 0.35 0.35 mg PO DAILY #84 tabs 02/26/24 07/15/24 Rx mg tablet (Jencycla) prochlorperazine maleate 5 mg 5 mg PO TID PRN headaches #30 tabs 04/22/24 07/15/24 Rx tablet ketoconazole 2 % topical cream 1 applic topical DAILY #120 grams 06/10/24 07/15/24 Rx topiramate 100 mg tablet (Topamax) 100 mg PO QHS #90 tabs 06/17/24 07/15/24 Rx fluticasone propionate 50 2 spray intranasal DAILY #15.8 mL 07/01/24 07/15/24 Rx mcg/actuation nasal spray,suspension pantoprazole 40 mg tablet,delayed 40 mg PO DAILY #90 tabs 07/01/24 07/15/24 Rx release (Protonix) semaglutide (weight loss) 2.4 2.4 mg (0.75 mL) subcut Q7D #3 mL 07/01/24 07/15/24 Rx mg/0.75 mL subcutaneous pen injector sertraline 50 mg tablet 100 mg (2 x 50 mg) PO DAILY #180 07/01/24 07/15/24 Rx tabs acetaminophen 500 mg tablet 1,000 mg (2 x 500 mg) PO Q8H PRN 07/15/24 Rx pain #90 tabs hydrocodone 5 mg-acetaminophen 325 1 tab PO Q6H PRN severe pain #6 07/15/24 Rx mg tablet tabs ibuprofen 600 mg tablet 600 mg PO TID PRN pain #60 tabs 07/15/24 Rx semaglutide (weight loss) 1.7 mg subcut 07/15/24 History mg/0.75 mL subcutaneous pen injector ([place]) Exam Const General: cooperative, comfortable and no acute distress Resp Auscultation: clear to auscultation bilaterally, no rales, no rhonchi and no wheezes Cardio Heart Sounds: S1 normal and S2 normal Documented by User: Telly Engel MD 07/16/24 07:34 Assessment and Plan Assessment and plan (1) Left carpal tunnel syndrome: Status: Acute (2) Cubital tunnel syndrome on left: Status: Acute Assessment and plan: Plan: Educated patient on surgery covering surgical technique, recovery process, benefits and risks including but not limited to risk of infection, blood clot, damage to soft tissue/blood vessels/nerves in detail. After discussion patient gives verbal understanding of risks and elects to proceed with scheduling surgery. Patient had opportunity to have questions answered to their satisfaction. They will contact office if issues arise. Patient will continue to be scheduled for Left endoscopic carpal tunnel release and left cubital tunnel decompression with possible anterior transposition with Dr. Engel I interviewed and examined the patient with Loulou Heck PA-C. I agree with the documentation as above. The assessment and plan were formulated with my direct involvement. Laura is a 38-year-old female who has ongoing pain and numbness and tingling about the left arm. Please see the previous office note for complete detailed history. However, she is here today for carpal tunnel and cubital tunnel release. I did discuss surgical details. I would perform an anterior transposition of the ulnar nerve if necessary after decompression. I reviewed the risk of the procedure to include bleeding, infection, pain, stiffness, persistent numbness, incomplete release, need for repeat procedures. Despite these risk, she elects to proceed. Telly Engel MD FAAOS FAAHKS PFSH All Active Problems Cubital tunnel syndrome on left (Acute) Left carpal tunnel syndrome (Acute) Tinea pedis (Acute) Ovarian cyst (Acute) Right. 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) RUQ abdominal pain (Acute) Bile reflux gastritis (Acute) Pelvic pain (Acute) Asthma (Chronic) BMI 38.0-38.9,adult (Acute) Paresthesia of hand, bilateral (Acute) Bilateral carpal tunnel syndrome (Acute) Neck pain of over 3 months duration (Acute) Chondromalacia, left knee (Acute) Neck pain, bilateral (Acute) Jaw pain (Acute) Status migrainosus (Acute) Chronic pain of left knee (Acute) [place] [facility] [place] Chronic pain of right knee (Acute) [place] [facility] [place] Patellofemoral stress syndrome (Acute) [place] [facility] [place]21 Myalgia (Acute) [place] [facility] [place]/21 Seasonal allergic rhinitis (Acute) Paresthesia of both feet (Acute) Verruca plantaris (Acute) 12/08/20 [place] [facility] [place] 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) 12/08/20 [facility] [place] Neoplasm of uncertain behavior, unspecified (Acute) 12/08/20 [facility] [place] biopsy done Posterior auricular pain of right ear (Acute) 12/08/20 [facility] [place] - pressure reducing strategies provided Positive JAMES (antinuclear antibody) (Acute) Skin lesions (Acute) Screening for cholesterol level (Acute) Fatigue (Acute) Joint stiffness (Acute) Joint pain (Acute) Routine medical exam (Acute) Headache (Acute) Cough (Acute) Migraine headache without aura (Acute) 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 Results will not change outcome. Migraine with aura (Chronic 05/08/13) Rare; Visual auras NEG MRI 2012 GERD (gastroesophageal reflux disease) (Chronic) Medical History Abnormal [place] [facility] [place] Abdominal discomfort in left upper quadrant Heartburn (05/08/13) ranitidine 150mg BID Allergic rhinitis Migraines Epistaxis Surgical History History of esophagogastroduodenoscopy (~07/2023) path Cholecystectomy 2006 section 08/2010 x2 Family History Mother Essential hypertension Father Rheumatoid arthritis Esophageal cyst Sister Diabetes Not sure type Brain tumor (benign) Sister Essential hypertension Asthma Paternal Grandmother , of PE Diabetes Pulmonary embolism Maternal Grandfather Myocardial infarct Social History Smoking/Tobacco Use Status: Former Tobacco Use Quit Date: 08/27/08 Tobacco: How many years used: 5 Second Hand Exposure: No Smoking risk assessment performed?: Yes Alcohol Intake: current Alcohol Intake frequency: a few times a month Alcohol type: hard liquor Drug use: Never Substance use type: does not use Adopted: No Caregiver/Support person: No Foster care: No Household members: spouse and children Housing: house Number of Children: 2 number of grandchildren: 0 Communication Needs: None Education Level: middle school Do you need help understanding health information?: Rarely 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 Pets and animals: Yes (cats, dogs, rabbit, chicken) Sexually active: Yes Do you think of yourself as: straight/heterosexual Current gender identity: female What is your relationship status?: How often do you talk on the phone with friends or family?: once per week How often do you get together with friends or relatives?: once per week Do you belong to any clubs or organized social groups?: no Panel score (0-1 are the most socially isolated patients): 1 What type of physical activity do you participate in: walking Duration: 15-30 minutes/day Frequency: 1-2 times per week Special curtis needs: No Seatbelt use: always Helmet use: Yes Helmet use: always Drive intox or ride w/intox pile driver: No Working smoke detector in home: Yes Fire extinguisher in home: Yes Carbon monox detector in home: Yes Do you feel safe at home: Yes Do you feel safe in your relationship?: Yes Victim of physical abuse: No Victim of emotional abuse: No History History 3 Para 3 Hx # Term Pregnancies Multiple births Hx # Pregnancies Ectopic pregnancies AB induced Hx Number of Living Children AB spontaneous Meds Allergies and Home Medications Allergies Allergy/AdvReac Type Severity Reaction Status Date / Time albuterol sulfate (From AdvReac palpitation Verified 07/15/24 09:46 Ventolin HFA) s Home Medications ?Medication ?Instructions ?Recorded ?Confirmed ?Type sodium fluoride 1.1 %-potassium 100 ml dental DAILY 05/24/17 07/15/24 History nitrate 5 % dental paste (PreviDent 5000 Sensitive) loratadine 10 mg tablet 10 mg PO DAILY PRN 08/05/19 07/15/24 History levalbuterol tartrate 45 1 - 2 puff inhalation q6h PRN 06/28/22 07/15/24 Rx mcg/actuation aerosol inhaler shortness of breath or wheezing ##1 (Xopenex HFA) sodium chloride 0.65 % nasal drops 2 drp intranasal QID PRN dry nasal 11/22/23 07/15/24 Rx ([place] Saline) passages #50 mL acetylcysteine 500 mg capsule 1,000 mg PO DAILY 11/26/23 07/15/24 History valacyclovir 1 gram tablet 2,000 mg (2 x 1 gram) PO BID PRN 12/04/23 07/15/24 Rx cold sores #12 tabs norethindrone (contraceptive) 0.35 0.35 mg PO DAILY #84 tabs 02/26/24 07/15/24 Rx mg tablet (Jencycla) prochlorperazine maleate 5 mg 5 mg PO TID PRN headaches #30 tabs 04/22/24 07/15/24 Rx tablet ketoconazole 2 % topical cream 1 applic topical DAILY #120 grams 06/10/24 07/15/24 Rx topiramate 100 mg tablet (Topamax) 100 mg PO QHS #90 tabs 06/17/24 07/15/24 Rx fluticasone propionate 50 2 spray intranasal DAILY #15.8 mL 07/01/24 07/15/24 Rx mcg/actuation nasal spray,suspension pantoprazole 40 mg tablet,delayed 40 mg PO DAILY #90 tabs 07/01/24 07/15/24 Rx release (Protonix) semaglutide (weight loss) 2.4 2.4 mg (0.75 mL) subcut Q7D #3 mL 07/01/24 07/15/24 Rx mg/0.75 mL subcutaneous pen injector sertraline 50 mg tablet 100 mg (2 x 50 mg) PO DAILY #180 07/01/24 07/15/24 Rx tabs acetaminophen 500 mg tablet 1,000 mg (2 x 500 mg) PO Q8H PRN 07/15/24 Rx pain #90 tabs hydrocodone 5 mg-acetaminophen 325 1 tab PO Q6H PRN severe pain #6 07/15/24 Rx mg tablet tabs ibuprofen 600 mg tablet 600 mg PO TID PRN pain #60 tabs 07/15/24 Rx semaglutide (weight loss) 1.7 mg subcut 07/15/24 History mg/0.75 mL subcutaneous pen injector (Alex)
--- NOTE | 2024-07-15 09:48 | W.ANESPRE ---
General Info Date of Service Date Performed: 07/15/24 Height: 5 ft 4 in Weight: 88.904 kg Body Mass Index (BMI): 33.6 Surgical Procedure: Operation Date: 07/15/24 12:10 Proposed Procedure Side Surgeon p Cubital Tunnel Release Left Telly Engel MD s Wrist ECTR Left Telly Engel MD Actual Procedure Side Surgeon p Cubital Tunnel Release Left Telly Engel MD s Wrist ECTR Left Telly Engel MD Pre-Op Diagnosis Post-Op Diagnosis LEFT CARPAL AND CUBITAL TUNNEL SYNDROME Meds Allergies and Home Medications Allergies Allergy/AdvReac Type Severity Reaction Status Date / Time albuterol sulfate (From AdvReac palpitation Verified 07/15/24 09:46 Ventolin HFA) s Home Medication ?Medication ?Instructions ?Recorded sodium fluoride 1.1 %-potassium 100 ml dental DAILY 05/24/17 nitrate 5 % dental paste (PreviDent 5000 Sensitive) loratadine 10 mg tablet 10 mg PO DAILY PRN 08/05/19 levalbuterol tartrate 45 1 - 2 puff inhalation q6h PRN 06/28/22 mcg/actuation aerosol inhaler shortness of breath or wheezing ##1 (Xopenex HFA) sodium chloride 0.65 % nasal drops 2 drp intranasal QID PRN dry nasal 11/22/23 (Raphine Saline) passages #50 mL acetylcysteine 500 mg capsule 1,000 mg PO DAILY 11/26/23 valacyclovir 1 gram tablet 2,000 mg (2 x 1 gram) PO BID PRN 12/04/23 cold sores #12 tabs norethindrone (contraceptive) 0.35 0.35 mg PO DAILY #84 tabs 02/26/24 mg tablet (Jencycla) prochlorperazine maleate 5 mg 5 mg PO TID PRN headaches #30 tabs 04/22/24 tablet ketoconazole 2 % topical cream 1 applic topical DAILY #120 grams 06/10/24 topiramate 100 mg tablet (Topamax) 100 mg PO QHS #90 tabs 06/17/24 fluticasone propionate 50 2 spray intranasal DAILY #15.8 mL 07/01/24 mcg/actuation nasal spray,suspension pantoprazole 40 mg tablet,delayed 40 mg PO DAILY #90 tabs 07/01/24 release (Protonix) semaglutide (weight loss) 2.4 2.4 mg (0.75 mL) subcut Q7D #3 mL 07/01/24 mg/0.75 mL subcutaneous pen injector sertraline 50 mg tablet 100 mg (2 x 50 mg) PO DAILY #180 07/01/24 tabs acetaminophen 500 mg tablet 1,000 mg (2 x 500 mg) PO Q8H PRN 07/15/24 pain #90 tabs hydrocodone 5 mg-acetaminophen 325 1 tab PO Q6H PRN severe pain #6 07/15/24 mg tablet tabs ibuprofen 600 mg tablet 600 mg PO TID PRN pain #60 tabs 07/15/24 semaglutide (weight loss) 1.7 mg subcut 07/15/24 mg/0.75 mL subcutaneous pen injector (Wegovy) Current Visit Medications: Current Medications Generic Name Dose Route Start Last Admin Trade Name Freq PRN Reason Stop Dose Admin Acetaminophen 1,000 mg 07/15/24 06:00 Acetaminophen 500 Mg Tab PO 07/15/24 23:59 PREOP [facility] Acetaminophen 650 mg 07/15/24 09:26 Acetaminophen 325 Mg Tab PO 08/14/24 09:25 Q4H PRN PRN Hydrocodone Bitart/Acetaminophen 0 tab 07/15/24 09:26 Hydrocodone 5/Acetaminophen 325 Tab PO 08/14/24 09:25 Q3H PRN PRN Pain Celecoxib 400 mg 07/15/24 06:00 Celecoxib 200 Mg Cap PO 07/15/24 23:59 PREOP [facility] Ringer's Solution 1,000 mls @ 80 mls/hr 07/15/24 06:00 IV 07/15/24 23:59 INFUSION [facility] Cefazolin Sodium/Dextrose 2 gm in 50 mls @ 100 mls/hr 07/15/24 06:00 Ancef Duplex IVPB 07/15/24 23:59 PREOP [facility] Tranexamic Acid 1,000 mg/ 60 mls @ 360 mls/hr 07/15/24 07:00 Sodium Chloride IVPB 07/15/24 16:00 PREOP [facility] IV Miscellaneous Supplies 1 each 07/15/24 06:00 Iv Access IV 07/15/24 23:59 DIRECTED [facility] Sodium Chloride 0 ml 07/15/24 06:00 Normal Saline Flush 10 Ml Syr IV 07/15/24 23:59 PRN PRN Sodium Chloride 0 ml 07/15/24 06:00 Normal Saline 10 Ml Vial IJ 07/15/24 23:59 DIRECTED PRN Sterile Water 0 ml 07/15/24 06:00 Water,Injection,Sterile 10 Ml Vial IJ 07/15/24 23:59 DIRECTED PRN PFSH Active Problems Active Problems: Problem Status Onset Code Cubital tunnel syndrome on left Acute G56.22 Left carpal tunnel syndrome Acute G56.02 Tinea pedis Acute B35.3 Ovarian cyst Acute N83.209 Cubital tunnel syndrome of both upper extremities Acute G56.23 Peripheral neuropathy Acute G62.9 Tarsal tunnel syndrome of left side Acute G57.52 Left ankle sprain Acute S93.402A Posterior tibial tendinitis of left leg Acute M76.822 Peroneal tendinitis of left lower extremity Acute M76.72 Upper respiratory tract infection Acute J06.9 Achilles tendon contracture, bilateral Acute M67.01, M67.02 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 Acute G57.62 RUQ abdominal pain Acute R10.11 Bile reflux gastritis Acute K29.60 Pelvic pain Acute R10.2 Asthma Chronic J45.909 BMI 38.0-38.9,adult Acute Z68.38 Paresthesia of hand, bilateral Acute R20.2 Bilateral carpal tunnel syndrome Acute G56.03 Neck pain of over 3 months duration Acute M54.2 Chondromalacia, left knee Acute M94.262 Neck pain, bilateral Acute M54.2 Jaw pain Acute R68.84 Status migrainosus Acute G43.901 Chronic pain of left knee Acute M25.562, G89.29 Chronic pain of right knee Acute M25.561, G89.29 Patellofemoral stress syndrome Acute M22.2X9 Myalgia Acute M79.10 Seasonal allergic rhinitis Acute J30.2 Paresthesia of both feet Acute R20.2 Verruca plantaris Acute B07.0 Chondrodermatitis nodularis helicis of right ear Acute H61.001 Neoplasm of uncertain behavior, unspecified Acute D48.9 Posterior auricular pain of right ear Acute H92.01 Positive JAMES (antinuclear antibody) Acute R76.8 Skin lesions Acute L98.9 Screening for cholesterol level Acute Z13.220 Fatigue Acute R53.83 Joint stiffness Acute M25.60 Joint pain Acute M25.50 Routine medical exam Acute Z00.00 Headache Acute R51.9 Cough Acute R05 Migraine headache without aura Acute G43.009 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 Migraine with aura Chronic 05/08/13 G43.109 GERD (gastroesophageal reflux disease) Chronic K21.9 Medical History Medical History Abnormal urine [place] [facility] 05[place]05[place]21 Abdominal discomfort in left upper quadrant Heartburn (05/08/13) ranitidine 150mg BID Allergic rhinitis Migraines Epistaxis Surgical History Surgical History History of esophagogastroduodenoscopy (~07/2023) path Cholecystectomy 2006 section 08/2010 x2 Tobacco Smoking/Tobacco Use Status: Former Tobacco Use Passive smoking exposure: No Second hand exposure: No Alcohol Alcohol Intake: current Alcohol intake frequency: a few times a month Alcohol type: hard liquor Substance Use Substance use: Never Substance use type: does not use Prental History History 3 Para 3 Hx # Term Pregnancies Multiple births Hx # Pregnancies Ectopic pregnancies AB induced Hx Number of Living Children AB spontaneous Vital Signs and Lab Results Vital Signs Most Recent Vital Signs in EMR: Temp Pulse Resp BP Pulse Ox 36.6 C 91 H 20 120/77 99 07/15/24 09:20 07/15/24 09:20 07/15/24 09:20 07/15/24 09:20 07/15/24 09:20 Lab Results Blood Type / Crossmatch: No Data to Display Complete Blood Count: No Data to Display Complete Metabolic Panel: No Data to Display Liver Function Panel: No Data to Display Coagulation Panel: No Data to Display Cardiac Panel: No Data to Display Arterial Blood Gas: No Data to Display Venous Blood Gas: No Data to Display Pancreas Panel: No Data to Display Thyroid Panel: No Data to Display Infectious Disease: No Data to Display Blood Cultures: No Data to Display Toxicology Panel: No Data to Display Panel: No Data to Display Imaging and Studies Imaging and Studies Study information below may be from another EMR and interpreted by another provider. Please see original notes in EMR for more complete details. Echocardiogram Summary: Patient Name: WILFREDO BLACKWELL Unit #: [id number] Loc: DI Ordering Provider: Serenity Baker RENTAL COUNTER CLERK Status: REG CLI Primary Care Provider: Paloma Armstrong NP Date of Exam: 04/17/17 Sex: F : 1985 Age: 31 Exam(s) [id number] US:Echocardiogram Heart *[facility]* *[facility]* [address] [place] [address] Date of study: 04/17/2017 Transthoracic Echocardiography M-mode, complete 2D, complete spectral Doppler, and color Doppler *STUDY CONCLUSIONS* Summary: 1. Left ventricle: The cavity size was normal. Wall thickness was normal. Systolic function was normal. The estimated ejection fraction was 60-65%. Wall motion was normal; there were no regional wall motion abnormalities. The outflow tract showed no obstruction. 2. Right ventricle: The cavity size was normal. Wall thickness was normal. Systolic function was normal. *PATIENT PRESENTATION* Height: 162.6cm ((64in) ) S/D Pressure: 126 / 89 Weight: 99.8kg ((219.5lb) ) BSA: 2.17m^2 Test start time: 02:30 PM. Test stop time: 03:30 PM. PERFORMING Unknown PERFORMING [facility] BRYOLOGIST Magaly Tomas ORDERING Serenity Baker REFERRING Serenity Baker *PROCEDURE DATA* Procedure information: This study was interpreted by [facility]. Pertinent images and digital data are archived for permanent storage and are available for subsequent review. No prior study was available for comparison. Study status: Routine. Transthoracic echocardiography. M-mode, complete 2D, complete spectral Doppler, and color Doppler. A Transthoracic Echocardiogram was performed. Scanning was performed from the parasternal, apical, subcostal, and suprasternal notch acoustic windows. Images were obtained using an [id number] cardiac ultrasound machine. Image quality was adequate. Study completion: The patient tolerated the procedure well. There were no complications. History: PMH: Dizziness/pre-syncope rule out structural cardiac problem. SOB. *CARDIAC ANATOMY* Left ventricle: The cavity size was normal. Wall thickness was normal. Systolic function was normal. The estimated ejection fraction was 60-65%. Wall motion was normal; there were no regional wall motion abnormalities. The outflow tract showed no obstruction. Diastolic parameters were normal. Aortic valve: Trileaflet; normal thickness leaflets. Mobility was not restricted. Doppler: Transvalvular velocity was within the normal range. There was no stenosis. There was no regurgitation. Valve area (VTI): 3.1cm^2. Indexed valve area (VTI): 1.4cm^2/m^2. Peak velocity ratio of LVOT to aortic valve: 0.81. Valve area (Vmax): 3.1cm^2. Indexed valve area (Vmax): 1.4cm^2/m^2. Mean gradient (S): 4.5mm Hg. Peak gradient (S): 8mm Hg. Aorta: Aortic root: The aortic root was normal in size. Ascending aorta: The ascending aorta was normal in size. Mitral valve: Structurally normal valve. Mobility was not restricted. Doppler: Transvalvular velocity was within the normal range. There was no evidence for stenosis. There was trivial regurgitation. Valve area by pressure half-time: 4.6cm^2. Indexed valve area by pressure half-time: 2.1cm^2/m^2. Peak gradient (D): 3.7mm Hg. Left atrium: The atrium was normal in size. Right ventricle: The cavity size was normal. Wall thickness was normal. Systolic function was normal. Pulmonic valve: Doppler: Transvalvular velocity was within the normal range. There was no evidence for stenosis. There was no significant regurgitation. Peak gradient (S): 5.9mm Hg. Tricuspid valve: Structurally normal valve. Doppler: Transvalvular velocity was within the normal range. There was no evidence for stenosis. There was trivial regurgitation. Pulmonary artery: Pulmonary systolic pressure was within the normal range, in the range of 25mm Hg to 30mm Hg. Right atrium: The atrium was normal in size. Pericardium: There was no pericardial effusion. Systemic veins: Inferior vena cava: The vessel was normal in size. Measurements Left ventricle Value Reference LV ID, ED, PLAX 4.7 cm 3.5 - 6.0 LV ID, ES, PLAX 3.4 cm 2.1 - 4.0 LV PW thickness, ED, PLAX 0.9 cm LV end-diastolic volume, 1-p A2C 103 ml LV ejection fraction, 1-p A2C 59 % LV end-diastolic volume, 1-p A4C 109 ml LV ejection fraction, 1-p A4C 65 % Ventricular septum Value Reference IVS thickness, ED, PLAX 0.9 cm LVOT Value Reference LVOT ID, A-P 2.2 cm LVOT area 3.8 cm^2 LVOT peak velocity, S 1.17 m/sec LVOT VTI, S 23.9 cm LVOT peak gradient, S 5.5 mm Hg LVOT mean gradient, S 2.4 mm Hg Aortic valve Value Reference Aortic mean gradient, S 4.5 mm Hg Aortic peak gradient, S 8 mm Hg Aortic valve area, VTI 3.1 cm^2 Velocity ratio, peak, LVOT/AV 0.81 Aortic valve area, peak velocity 3.1 cm^2 Aorta Value Reference Aortic root ID, ED 2.9 cm Ascending aorta ID, A-P, S 2.9 cm RVOT Value Reference RVOT VTI, S 20.5 cm Left atrium Value Reference LA area, ES, A4C 23 cm^2 8.8 - 23.4 LA volume/bsa, ES, 1-p A4C 35 ml/m^2 LA/aortic root ratio 1.18 Mitral valve Value Reference Mitral E-wave peak velocity 0.96 m/sec Mitral A-wave peak velocity 0.68 m/sec Mitral pressure half-time 48 ms Mitral peak gradient, D 3.7 mm Hg Mitral E/A ratio, peak 1.41 Mitral valve area, PHT, DP 4.6 cm^2 Pulmonary veins Value Reference Pulmonary vein peak velocity, S 0.54 m/sec Pulmonary vein peak velocity, D 0.53 m/sec Pulmonary vein velocity ratio, peak, 1.01 S/D Pulmonary vein A-wave reversal peak 0.38 m/sec velocity Tricuspid valve Value Reference Tricuspid regurg peak velocity 2.3 m/sec Tricuspid peak RV-RA gradient 21.4 mm Hg Right atrium Value Reference RA area, ES, A4C 16.5 cm^2 8.3 - 19.5 Pulmonic valve Pulmonary Function Summary: PATIENT NAME: WILFREDO BLACKWELL UNIT #: [id number] ADMITTING PROVIDER: FAVIO TAPIA MD PRIMARY CARE PROVIDER: PALOMA ARMSTRONG NP DATE OF ADMIT: 04/19/17 : 1985 PULMONARY FUNCTION TEST REPORT DATE OF SERVICE April 19, 2017 IMPRESSION Normal pulmonary function study. If the diagnosis of asthma is in question, proceeding with Methacholine challenge testing may prove to be useful, therefore clinical correlation recommended. REQUESTING PROVIDER Serenity Baker N.P. INTERPRETATION OF STUDY Spirometry shows no evidence of obstructive airways disease. No bronchodilator response. LUNG VOLUMES - Lung volumes show no evidence of restriction. DIFFUSION CAPACITY- Normal. AIRWAY RESISTANCE - Normal. Meghan Dillon DD - 04/23/2017 DT - 04/23/2017 document embedded image Anesthesia Assessment and Plan Anesthesia History Personal History: No History of Anesthesia Complications Family History: No Family History of Anesthesia Complications Exercise Tolerance Exercise Tolerance: Metabolic Equivalents>4 Pertinent Negatives Pertinent Negatives: No Symptoms of GERD, No Major Cardiovascular Symptoms or Complaints, No Major Pulmonary Symptoms or Complaints (mild asthma) and No History of CVA/TIA Cardiac & Pulmonary Exam Cardiac Exam: Normal S1/S2 Heart Sounds Pulmonary Exam: Clear Bilateral Breath Sounds Implantable Cardiac Device Does patient have a Pacemaker or an ICD?: No Airway Exam Known Difficult Airway: No Mallampati Class: 2 Mouth Opening: Normal (> 3cm) Thyromental Distance: Greater than 3 cm Neck Range of Motion: Full ROM Neck Circumference: Normal Teeth Condition: Normal Dentition and Loose or Chipped Tooth Numberin. chipped 2. chipped 3. Patient reports abscess treated with abx, dentist plans a root canal. Discussed added risk to this region and patient aware. ASA Classification ASA Score: ASA 2 Emergency Case?: No NPO Status NPO Status: NPO Clears >2 hours, Solids >8 hours Status Status: Negative HCG Anesthesia Plan Resuscitation Status: Full Code Anesthesia Technique: General Anesthesia Airway Planned: LMA Monitors Used: Standard Monitors
[2024-07-15] MEDS: Acetaminophen 500 MG TAB 1000 MG PO (09:58)
[2024-07-15] MEDS: Normal Saline Flush 10 ML SYR IV (09:59)
[2024-07-15] MEDS: Celecoxib 200 MG CAP 400 MG PO (09:59)
[2024-07-15] MEDS: ceFAZolin 2 GM/50 ML BAG IVPB (10:26)
[2024-07-15] MEDS: Bupivacaine 0.25% Pres-Free W/EPI 30 ML VIAL (10:45)
--- NOTE | 2024-07-15 11:44 | ROE_ITS ---
Operative Note Operative Note PRE-OP DIAGNOSIS: Left Carpal Tunnel and Left Cubital Tunnel Syndrome POST-OP DIAGNOSIS: same PROCEDURE: Left Endoscopic Carpal Tunnel Release and Left Cubital Tunnel Decompression SURGEON: Telly Engel SECURITY DOOR INSTALLER: Loulou Heck Refer to Anesthesia Record ESTIMATED BLOOD LOSS: 0 PATHOLOGY: none sent TOURNIQUET TIME: 20 COMPLICATIONS: None Patient was transported to: PACU Patient's condition: stable Indications: Laura is a 38 year old female who has had symptoms of carpal and cubital tunnel syndrome. Nonoperative treatment options had been trialed. Given failure of nonoperative treatments and persistent symptoms, I offered operative intervention. I reviewed the technical details of a carpal tunnel release and cubital tunnel decompression with possible anterior subcutaneous transposition. I reviewed the risk of the procedure to include bleeding, infection, pain, stiffness, nerve instability, damage to superficial nerves, persistent symptoms, and incomplete release. Despite these risks, the patient elected to proceed. Findings: The carpal tunnel was release with a standard endoscopic technique without difficulty and excellent visualization. There was a tightened cubital tunnel. [OTHER] The ulnar nerve was release from the first motor branch distally through the [place] proximally. Procedure Description: Laura was greeted in the preoperative holding area where the correct side was identified and marked. The consent was reviewed with the patient and signed. The history and physical was updated. All questions were answered. She was taken back to the operating room. The patient was placed into the supine position on the operating room table with the left arm on an arm board. A nonsterile tourniquet was placed high onto the arm, into the axilla. All bony prominences were well padded. Prophylactic antibiotics in the form of Cefazolin were administered. The left arm was then prepped with Chloraprep and draped in a standard fashion with stockinette and extremity drape. A timeout to confirm correct identity, side and site, procedure, allergies, anesthesia, and medical concerns was performed. The surgical site was marked in the volar wrist creases in line with the radial border of the fourth ray. This area was anesthetized with approximately 6cc of 1% Lidocaine with Epinephrine. The surgical site about the medial elbow was drawn on the skin just posterior to the medial epicondyle borders. The planned surgical field was anesthetized with 1% Lidocaine with Epinephrine. The limb was then exsanguinated with an Esmarch. Starting with the carpal tunnel, the skin was incised with a 15 blade, approximately 1cm. The skin only was cut and the deeper tissue was dissected bluntly with a tenotomy scissor, avoiding passing nerve and venous structures. The fascia was penetrated and opened bluntly. A two-prong skin hook was placed under this proximal fascial edge. A series of hamate finders were used to identify and dilate the carpal tunnel. Synovial elevator was used to free synovial attachments to the underside of the transverse carpal ligament. My thumb was kept in the palm to halie the distal extent of the carpal tunnel and correctly position the hand. The Microaire endoscope was inserted without difficulty and without resistance. Excellent visualization showed horizontally running fibers of the transverse carpal ligament (TCL). The distal extent of the TCL was visualized and the end of the scope palpated with the thumb. The blade was elevated and withdrawn from distal to proximal. The TCL was split into two flaps. The endoscope was reinserted to confirm complete release and any remnant ligament was incised. The scope was withdrawn and the proximal aspect of the carpal tunnel was grossly inspected and appeared release with the median nerve visible. The antebrachial fascia at the level of the wrist was then freed from the overlying skin and then the underlying median nerve with blunt dissection. This was transected longitudinally for about 3cm proximal to the wrist incision. The wound was then irrigated with easy flow of irrigant distally and proximally. The incision was closed with a single 4-0 Nylon suture. . Attention was then turned to the cubital tunnel release. The skin of the medial elbow was incised only with the elbow in some flexion and on a bump. The deep tissue and subcutaneous fat was dissected with a tenotomy scissors trying to protect any branches of the medial antebrachial cutaneous nerve. Any branches that were identified were retracted out of the way. The ulnar nerve was palpated and identified. A small window into the cubital tunnel, sheath overlying the nerve, was created and the nerve was able to be palpated with the [place]. A Metzenbaum scissor was then used to open up the sheath starting with Garcia's ligament. I then worked distal over the ulnar nerve releasing any constraints against the nerve all the way to the fascia of the FCU muscle belly. This muscle belly was bluntly all the way down to the first motor branch of the ulnar nerve and the overlying fascia was incised distally until there was no futher compression on the nerve. Likewise starting there at the medial epicondyle, I proceeded to work proximally to release any constraints over the ulnar nerve. This was taken all the way to the [place] of [place]. The medial intermuscular septum was also palpated and any sharp edges against the ulnar nerve were resected and released. After fully releasing the nerve it was inspected visually. I was also able to palpate the nerve fully and reach one finger up into the proximal and distal aspects to make sure there were no constraints against the nerve. A freer elevator was also used to slide easily against the ulnar nerve without any points of constriction. The arm was then taken through range of motion. The ulnar nerve did not sublux/dislocate out of its groove behind the lateral epicondyle. Therefore, no transposition was performed. The tourniquet was then deflated. Any areas of bleeding were cauterized with bipolar electrocautery. The wound was thoroughly irrigated. The deep tissue was closed with a 3-0 Vicryl. The skin was closed with a 4-0 nylon. The wounds were dressed with Xeroform, 4 x 4's, ABD, Kerlix and an Eric wrap. Laura was placed into a sling. She was transferred back to the PACU in a stable condition. Date of Procedure: 07/15/24
--- NOTE | 2024-07-15 12:38 | W.ANESPOSTOP ---
Postoperative Evaluation Date, Time and Location Date Performed: 07/15/24 Time Performed: 12:38 Patient Location: Day Surgery Unit Vital Signs Most Recent Imported Vital Signs: Most Recent Vital Signs Temp Pulse Resp BP Pulse Ox 36.1 C L 73 16 122/81 100 07/15/24 12:15 07/15/24 12:15 07/15/24 12:15 07/15/24 12:15 07/15/24 12:15 Pain Score Most Recent Pain Score: Most Recent Pain Score Pain Level 0 07/15/24 12:15 Assessment Mental Status: Awake (Alert & Oriented to Patient Baseline) Airway and Respiratory Function: Patent airway with normal (patient baseline) respiratory exam Cardiovascular Function: Hemodynamically Stable Hydration Status: Adequately Hydrated Nausea & Vomiting: No Nausea or Vomiting Pain: Pain is tolerable per patient Peripheral Nerve Block: Patient did not receive a nerve block
== END 2024-07-15 12:40 | disposition home or self-care (01) ==
PROVIDERS: PCP Nurse Practitioner; Visit Provider Student in an Organized Health Care Education/Training Program
PROC: (CPT 64718; principal; 2024-07-15 12:00)
PROC: 01N54ZZ Release Median Nerve, Percutaneous Endoscopic Approach (ICD-10-PCS; CPT 29848; 2024-07-15 12:00)
DX: G56.02 Carpal tunnel syndrome, left upper limb (principal); G56.22 Lesion of ulnar nerve, left upper limb
CPT/HCPCS: 64718; 29848; 81025; J0690; J1100; J2003; J2405; J2704; J3010

== ENCOUNTER 2024-10-06 15:31 | Outpatient (CLI) | payer OTHER, SELFPAY ==
--- NOTE | 2024-10-06 08:30 | DI.RAD_ITS ---
Exam(s) XR SHOULDER LT COMPLETE 2+V EXAM: XR SHOULDER LT COMPLETE 2+V CLINICAL HISTORY: left shoulder pain. TECHNIQUE: 2D digital imaging was performed. COMPARISON: CR XR SHOULDER RT COMPLETE 2+V from 09/27/2023 FINDINGS: 3 views No evidence of fracture or dislocation or abnormal soft tissue calcifications. Subacromial space unr emarkable. There are no degenerative changes in the glenohumeral joint. No obvious degenerative david nges in the AC joint. Ipsilateral clavicle unremarkable. Bone density normal. No significant osseous lesions evident. IMPRESSION: No significant radiographic findings on these three views of the left shoulder. DATA REPOSITORY: RADIATION DOSE DELIVERED:
== END 2024-10-06 15:32 | disposition home or self-care (01) ==
LOC: DIORS 15:32
PROVIDERS: PCP Nurse Practitioner; Visit Provider Physician Assistant
DX: M25.512 Pain in left shoulder (principal)
CPT/HCPCS: 73030

== ENCOUNTER 2024-12-17 02:39 | Outpatient (CLI) | payer OTHER, SELFPAY ==
--- NOTE | 2024-12-17 08:15 | DI.RAD_ITS ---
Exam(s) XR LUMBAR SPINE COMPLETE EXAM: XR LUMBAR SPINE COMPLETE CLINICAL HISTORY: L sided sciatica,m54.30. TECHNIQUE: 2D digital imaging was performed. COMPARISON: CT CT ABDOMEN PELVIS W from 04/10/2024 FINDINGS: Five views No evidence of fracture, listhesis, nor pars interarticularis defects. All of the disc spaces exhibi t normal height and there is no scoliosis. No significant facet arthropathy evident. Bone density n ormal. No osseous lesions. There is mild sclerosis on the iliac side of lower half of both sacroili ac joints. There is no ankylosis. IMPRESSION: Mild sclerosis on the iliac side of both sacroiliac joints. May represent an element of sacroiliitis . There is no ankylosis of the SI joints. No significant radiographic findings in the lumbosacral spine above the SI joint level. DATA REPOSITORY: RADIATION DOSE DELIVERED:
== END 2024-12-17 02:59 ==
LOC: DI 02:39
PROVIDERS: PCP Nurse Practitioner; Visit Provider Family Medicine
DX: M54.31 Sciatica, right side (principal); M54.32 Sciatica, left side
CPT/HCPCS: 72110

== ENCOUNTER 2024-12-24 00:49 | Outpatient (CLI) | payer OTHER, SELFPAY ==
--- NOTE | 2024-12-24 07:30 | DI.MRI_ITS ---
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 TECHNIQUE: Multiplanar multisequence MRI was performed. CONTRAST MATERIAL: noncontrast COMPARISON: The most recent plain films are dated 08 November 2023 FINDINGS: The marrow signal is normal. No evidence of tendon tear or thickening. No visible Cohen's neuroma or other soft tissue abnormality. IMPRESSION: No evidence of Cohen's neuroma. DATA REPOSITORY:
--- NOTE | 2024-12-24 07:30 | DI.MRI_ITS ---
Exam(s) MR LOWER JOINT LT WO EXAM: MR LOWER JOINT LT WO CLINICAL HISTORY: lateral ankle pain with neuritis,peroneal tendinitis,post tibial tendinitis TECHNIQUE: Multiplanar multisequence MRI was performed without intravenous contrast. COMPARISON: CR XR FOOT LT COMPLETE from 11/08/2023 FINDINGS: BONES/JOINTS: No fracture or contusion pattern. No suspicious bone lesions identified. The talar dom e is smooth. The ankle mortise is maintained. There is an accessory navicular. No abnormal signal se en at the articulation. Mild edema in the posterior talus adjacent to the region of the talofibular ligament. LIGAMENTS: There is some fluid around the posterior talofibular ligament with several it adjacent rou nded fluid collections, there is a 10 millimeter collection seen posterior to the ligament and a few tiny cystic areas seen within the ligament. The tibiofibular and calcaneofibular ligaments are intac t. The deltoid ligament is intact. The syndesmosis is unremarkable. Sinus tarsi is normal. MUSCULOTENDINOUS STRUCTURES: Achilles tendon: Unremarkable. Plantar fascia: Unremarkable. Anterior Extensor tendons: Unremarkable. Posterior Tibialis: Unremarkable. Flexor Digitorum longus: Unremarkable. Flexor Hallucis longus: Unremarkable. Peroneus longus: Unremarkable. Peroneus brevis:Unremarkable. SOFT TISSUES: Unremarkable. IMPRESSION: No abnormalities identified involving the posterior tibial or peroneal tendons. There is fluid fluid and ganglia related to the posterior talofibular ligament. DATA REPOSITORY:
== END 2024-12-24 01:09 ==
LOC: DI 00:49
PROVIDERS: PCP Nurse Practitioner; Visit Provider Podiatrist
DX: M76.72 Peroneal tendinitis, left leg (principal); M76.822 Posterior tibial tendinitis, left leg; M67.01 Short Achilles tendon (acquired), right ankle; M67.02 Short Achilles tendon (acquired), left ankle; G57.62 Lesion of plantar nerve, left lower limb
CPT/HCPCS: 73721; 73718

== ENCOUNTER 2025-01-11 10:44 | Emergency (ER) | payer OTHER, SELFPAY ==
[2025-01-11 10:48] VITALS: BP 121/82; PULSE 69; RESP 20; TEMP 36.6; O2SAT 98
[2025-01-11] MEDS: Diph,Pertuss(Acell),Tet Vac/Pf 0.5 ML SYR IM (11:10)
--- NOTE | 2025-01-11 11:12 | ED.GENADUL_ITS ---
Discharge Plan Disposition Patient Disposition: Home Condition: Stable Discharge Details Clinical Impression: Finger laceration, Tetanus toxoid vaccination administered at current visit Primary Care Provider: Paloma Steele ED Provider: Kasey Doan [place] Meds and New Rx's Prescriptions: No Action prochlorperazine maleate 5 mg tablet 5 mg PO TID PRN (Reason: headaches) Qty: 30 3RF Rx Instructions: Take 1-2 tablets every 8 hours as needed for headaches or nausea Trent Saline 0.65 % drops 2 drp intranasal QID PRN (Reason: dry nasal passages) Qty: 50 1RF valacyclovir 1 gram tablet 2,000 mg PO BID PRN (Reason: cold sores) Qty: 12 2RF Rx Instructions: 2 tabs BID for two doses. May use PRN. semaglutide (weight loss) 2.4 mg/0.75 mL pen injector 2.4 mg subcut Q7D Qty: 3 8RF pantoprazole [Protonix] 40 mg tablet,delayed release (DR/EC) 40 mg PO DAILY Qty: 90 3RF fluticasone propionate 50 mcg/actuation spray,suspension 2 spray intranasal DAILY Qty: 15.8 12RF Rx Instructions: administer into each nostril sertraline 100 mg tablet 100 mg PO DAILY 90 Days Qty: 90 4RF norethindrone (contraceptive) [Jencycla] 0.35 mg tablet 0.35 mg PO DAILY Qty: 84 4RF sodium fluoride-pot nitrate [PreviDent 5000 Sensitive] 100 ML paste 100 ml Dental DAILY loratadine 10 mg tablet 10 mg PO DAILY PRN levalbuterol tartrate [Xopenex HFA] 45 mcg/actuation HFA aerosol inhaler 1 - 2 puff Inhalation q6h PRN (Reason: shortness of breath or wheezing) Qty: 1 12RF topiramate [Topamax] 100 mg tablet 100 mg PO QHS Qty: 90 3RF ibuprofen 600 mg tablet 600 mg PO TID PRN (Reason: pain) Qty: 60 0RF Discharge Instructions Instructions: Stitches and hemal, Wound Care ED, DTaP Vaccine (Diphtheria, Tetanus, Pertussis) CDC Vaccine Information Statement (VIS) Additional Instructions: Suture removal in 1 week. Discharge Data Discharge Physician: Kasey Doan [facility] General Date/Time Provider Initiated Documentation: 01/11/25 10:57 . HPI Narrative: 39-year-old female presents for evaluation of finger laceration. Patient states that she was holding a broom and trying to get her dog to go outside when the broom cut the pad of her finger. Bleeding is well-controlled. Denies any numbness or tingling. No other injuries. Last tetanus was in 2013. Related Data Home Medications ?Medication ?Instructions ?Recorded ?Confirmed sodium fluoride 1.1 %-potassium 100 ml dental DAILY 05/24/17 01/11/25 nitrate 5 % dental paste (PreviDent 5000 Sensitive) loratadine 10 mg tablet 10 mg PO DAILY PRN 08/05/19 01/11/25 levalbuterol tartrate 45 1 - 2 puff inhalation q6h PRN 06/28/22 01/11/25 mcg/actuation aerosol inhaler shortness of breath or wheezing ##1 (Xopenex HFA) sodium chloride 0.65 % nasal drops 2 drp intranasal QID PRN dry nasal 11/22/23 01/11/25 (Trent Saline) passages #50 mL valacyclovir 1 gram tablet 2,000 mg (2 x 1 gram) PO BID PRN 12/04/23 01/11/25 cold sores #12 tabs prochlorperazine maleate 5 mg 5 mg PO TID PRN headaches #30 tabs 04/22/24 01/11/25 tablet topiramate 100 mg tablet (Topamax) 100 mg PO QHS #90 tabs 06/17/24 01/11/25 fluticasone propionate 50 2 spray intranasal DAILY #15.8 mL 07/01/24 01/11/25 mcg/actuation nasal spray,suspension pantoprazole 40 mg tablet,delayed 40 mg PO DAILY #90 tabs 07/01/24 01/11/25 release (Protonix) semaglutide (weight loss) 2.4 2.4 mg (0.75 mL) subcut Q7D #3 mL 07/01/24 01/11/25 mg/0.75 mL subcutaneous pen injector ibuprofen 600 mg tablet 600 mg PO TID PRN pain #60 tabs 07/15/24 01/11/25 norethindrone (contraceptive) 0.35 0.35 mg PO DAILY #84 tabs 12/17/24 01/11/25 mg tablet (Jencycla) sertraline 100 mg tablet 100 mg PO DAILY 90 days #90 tabs 12/17/24 01/11/25 Previous Rx's ?Medication ?Instructions ?Recorded levalbuterol tartrate 45 1 - 2 puff inhalation q6h PRN 06/28/22 mcg/actuation aerosol inhaler shortness of breath or wheezing ##1 (Xopenex HFA) sodium chloride 0.65 % nasal drops 2 drp intranasal QID PRN dry nasal 11/22/23 (Trent Saline) passages #50 mL valacyclovir 1 gram tablet 2,000 mg (2 x 1 gram) PO BID PRN 12/04/23 cold sores #12 tabs prochlorperazine maleate 5 mg 5 mg PO TID PRN headaches #30 tabs 04/22/24 tablet topiramate 100 mg tablet (Topamax) 100 mg PO QHS #90 tabs 06/17/24 fluticasone propionate 50 2 spray intranasal DAILY #15.8 mL 07/01/24 mcg/actuation nasal spray,suspension pantoprazole 40 mg tablet,delayed 40 mg PO DAILY #90 tabs 07/01/24 release (Protonix) semaglutide (weight loss) 2.4 2.4 mg (0.75 mL) subcut Q7D #3 mL 07/01/24 mg/0.75 mL subcutaneous pen injector ibuprofen 600 mg tablet 600 mg PO TID PRN pain #60 tabs 07/15/24 norethindrone (contraceptive) 0.35 0.35 mg PO DAILY #84 tabs 12/17/24 mg tablet (Jencycla) sertraline 100 mg tablet 100 mg PO DAILY 90 days #90 tabs 12/17/24 Allergies Allergy/AdvReac Type Severity Reaction Status Date / Time albuterol sulfate (From AdvReac palpitation Verified 01/11/25 10:52 Ventolin HFA) s General Stated Complaint: Laceration LUZ: 4 Review of Systems Narrative: Remainder of review of systems otherwise negative except for as noted in the HPI x 5. Exam Narrative Exam Narrative: General: non-toxic, no respiratory distress, comfortable HEENT: normocephalic, atraumatic, lids and lashes normal, PERRL, EOMI, anicteric sclera, no conjunctival injection, moist oral mucosa Musculoskeletal: 1.5 cm curvilinear laceration pad of left fourth finger, and half centimeter flap pad of left fourth finger, full strength to flexion and extension of DIP, PIP, MCP of left fourth finger, 2+ radial pulses, otherwise full range of motion of arms and legs, no tenderness to palpation. no clubbing, cyanosis, or edema Neurologic: appropriate for age, strength normal Psych: alert and oriented Skin: As above, otherwise no petechiae, no lesions, warm and dry Course Vital Signs Vital signs: Vital Signs Temperature 36.6 C 01/11/25 10:48 Pulse 69 01/11/25 10:48 Respiratory Rate 20 01/11/25 10:48 Blood Pressure 121/82 01/11/25 10:48 Pulse Oximetry 98 01/11/25 10:48 Temperature 36.6 C 01/11/25 10:48 Pulse 69 01/11/25 10:48 Respiratory Rate 20 01/11/25 10:48 Blood Pressure 121/82 01/11/25 10:48 Blood Pressure Position Sitting 01/11/25 10:48 Pulse Oximetry 98 01/11/25 10:48 Oxygen Delivery Method Room Air 01/11/25 10:48 Oxygen Flow Rate 0 01/11/25 10:48 Procedure Laceration Laceration 1: Date of Procedure: 01/11/25 Time of procedure: 11:30 Provider that performed the procedure: Kasey Doan Standard Time Out Performed: Yes Patient Consented: Verbally Site: hand Side (If applicable): left (Pad of fourth finger) Description: linear (1.5 cm curvilinear) Depth: simple, single layer Local anesthetic: Lidocaine 1% Amount of anesthesia used (mL): 3 Pre-repair:: wound explored and irrigated extensively Skin layer closed with: other (Prolene) Suture size: 5-0 Number of sutures:: 5 Technique: simple, interrupted Laceration 2: Date of Procedure: 01/11/25 Time of procedure: 11:30 Provider that performed the procedure: Kasey Doan Standard Time Out Performed: Yes Patient Consented: Verbally Site: hand Side (If applicable): left Description: linear (Half centimeter with flap) Procedure Description/Note: Surgical glue line after irrigating Medical Decision Making 39-year-old female presents for evaluation of laceration to pad of finger. Tetanus is updated. Wound repaired by myself. 5 sutures to curvilinear last laceration. Patient instructed on wound care. She understands indications to return. Quality:SDOH Health Related Social Needs: No Data to Display PFSH All Active Problems (Updated 01/11/25 @ 11:15 by Kasey Doan MD) Tetanus toxoid vaccination administered at current visit (Acute) Finger laceration (Acute) Surveillance for control, oral contraceptives (Acute) Sciatica (Acute) Left brachial plexitis (Acute) Tendinopathy of left biceps tendon (Acute) Tendonitis of left rotator cuff (Acute) Cubital tunnel syndrome on left (Acute) S/P ulnar nerve decompression: 07/15/2024 Left carpal tunnel syndrome (Acute) S/P ECTR: 07/15/2024 Tinea pedis (Acute) Ovarian cyst (Acute) Right. 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) RUQ abdominal pain (Acute) Bile reflux gastritis (Acute) Pelvic pain (Acute) Asthma (Chronic) BMI 38.0-38.9,adult (Acute) Paresthesia of hand, bilateral (Acute) Bilateral carpal tunnel syndrome (Acute) Neck pain of over 3 months duration (Acute) Chondromalacia, left knee (Acute) Neck pain, bilateral (Acute) Jaw pain (Acute) Status migrainosus (Acute) Chronic pain of left knee (Acute) Per [facility] Rheumatology note from 05/05/21 Chronic pain of right knee (Acute) Per [facility] Rheumatology note from 05/05/21 Patellofemoral stress syndrome (Acute) Per [facility] Rheumatology note from 05/05/21 Myalgia (Acute) Per [facility] Rheumatology note from 05/05/21 Seasonal allergic rhinitis (Acute) Paresthesia of both feet (Acute) Verruca plantaris (Acute) 12/08/20 treated at [facility] Derm - cryotherapy 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) 12/08/20 [facility] Derm Neoplasm of uncertain behavior, unspecified (Acute) 12/08/20 [facility] Derrm, biopsy done Posterior auricular pain of right ear (Acute) 12/08/20 [facility] Derm - pressure reducing strategies provided Positive JAMES (antinuclear antibody) (Acute) Skin lesions (Acute) Screening for cholesterol level (Acute) Fatigue (Acute) Joint stiffness (Acute) Joint pain (Acute) Routine medical exam (Acute) Headache (Acute) Cough (Acute) Migraine headache without aura (Acute) 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 Results will not change outcome. Migraine with aura (Chronic 05/08/13) Rare; Visual auras NEG MRI 2012 GERD (gastroesophageal reflux disease) (Chronic) Medical History Abnormal urine Per [facility] Rheumatology note from 05/05/21 Abdominal discomfort in left upper quadrant Heartburn (05/08/13) ranitidine 150mg BID Allergic rhinitis Migraines Epistaxis Surgical History History of esophagogastroduodenoscopy (~07/2023) path Cholecystectomy 2006 section 08/2010 x2 Family History Mother Essential hypertension Father Rheumatoid arthritis Esophageal cyst Sister Diabetes Not sure type Brain tumor (benign) Sister Essential hypertension Asthma Paternal Grandmother , of PE Diabetes Pulmonary embolism Maternal Grandfather Myocardial infarct Social History Smoking/Tobacco Use Status: Former Tobacco Use Quit Date: 08/27/08 Tobacco: How many years used: 5 Second Hand Exposure: No Smoking risk assessment performed?: Yes Alcohol Intake: current Alcohol Intake frequency: a few times a month Alcohol type: hard liquor Drug use: Never Substance use type: does not use Adopted: No Caregiver/Support person: No Foster care: No Household members: spouse and children Housing: house Number of Children: 2 number of grandchildren: 0 Communication Needs: None Education Level: middle school Do you need help understanding health information?: Rarely 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 Pets and animals: Yes (cats, dogs, rabbit, chicken) Sexually active: Yes Do you think of yourself as: straight/heterosexual Current gender identity: female What is your relationship status?: How often do you talk on the phone with friends or family?: once per week How often do you get together with friends or relatives?: once per week Do you belong to any clubs or organized social groups?: no Panel score (0-1 are the most socially isolated patients): 1 What type of physical activity do you participate in: walking Duration: 15-30 minutes/day Frequency: 1-2 times per week Special curtis needs: No Seatbelt use: always Helmet use: Yes Helmet use: always Drive intox or ride w/intox chuck wagon driver: No Working smoke detector in home: Yes Fire extinguisher in home: Yes Carbon monox detector in home: Yes Do you feel safe at home: Yes Do you feel safe in your relationship?: Yes Victim of physical abuse: No Victim of emotional abuse: No Female Reproductive History Menstrual control method: other (partner with vasectomy) History History 3 Para 3 Hx # Term Pregnancies Multiple births Hx # Pregnancies Ectopic pregnancies AB induced Hx Number of Living Children AB spontaneous
== END 2025-01-11 11:51 | disposition home or self-care (01) ==
PROVIDERS: Emergency Provider Emergency Medicine Emergency Medical Services; PCP Nurse Practitioner
DX: S61.215A Laceration without foreign body of left ring finger without damage to nail, initial encounter (principal); Z23 Encounter for immunization; Z79.899 Other long term (current) drug therapy; W54.8XXA Other contact with dog, initial encounter; Y93.K9 Activity, other involving animal care; Y92.018 Other place in single-family (private) house as the place of occurrence of the external cause
CPT/HCPCS: 12001; 90471; 90715; 99283

== ENCOUNTER 2025-03-03 03:09 | Outpatient (CLI) | payer OTHER, SELFPAY ==
[2025-03-03 07:27] LABS: HCT 38.6 % (36.0-46.0); HGB 12.5 g/dL (11.2-15.7); MCH 25.9 pg (27.0-33.0); MCHC 32.4 % (32.0-36.0); MCV 80 fL (80-95); MPV 8.7 fL (8.0-11.0); Platelet Count 277 10^3/uL (130-400); RBC 4.82 10^6/uL (3.93-5.22); RDW 13.6 % (11.7-14.6); RDW-SD 39.6 fL; WBC 5.79 10^3/uL (4.4-10.8)
[2025-03-03 08:03] LABS: ALT 26 U/L (14-59); AST 13 U/L (15-37); Albumin 3.6 g/dL (3.4-5.0); Alkaline Phosphatase 63 U/L (46-116); Anion Gap 9.5 mmol/L (3-11); BUN 14 mg/dL (7-18); Bilirubin, Total 0.3 mg/dL (0.2-1.0); CO2 22.5 mmol/L (21.0-32.0); Calcium 8.5 mg/dL (8.5-10.1); Calculated LDL 111 mg/dL (<100); Chloride 107 mmol/L (98-107); Cholesterol 166 mg/dL (<200); Estimated GFR 83.92 (mL/min/1.73m2); Glucose 91 mg/dL (74-106); HDL Cholesterol 42 mg/dL (>or=50); Potassium 4.1 mmol/L (3.5-5.1); Sodium 139 mmol/L (136-145); Total Protein 7.5 g/dL (6.4-8.2); Triglyceride 68 mg/dL (<150); Vitamin D 25 Total 26 ng/mL (30-100)
== END 2025-03-03 03:10 | disposition home or self-care (01) ==
LOC: LBO 03:09
PROVIDERS: PCP Nurse Practitioner Adult Health; Visit Provider Advanced Practice Midwife
DX: Z86.39 Personal history of other endocrine, nutritional and metabolic disease; K21.9 Gastro-esophageal reflux disease without esophagitis; Z00.00 Encounter for general adult medical examination without abnormal findings
CPT/HCPCS: 36415; 80053; 80061; 82306; 85027

== ENCOUNTER 2025-03-30 12:41 | Outpatient (CLI) | payer OTHER, SELFPAY ==
[2025-03-31 09:23] LABS: HBs Antibody, Quant 4.2 mIU/mL (See Note); Hepatitis B Surface Ab Negative (See Note)
[2025-03-31 11:07] LABS: Rubella IgG Ab (UVM) Negative (See Note)
[2025-04-01 13:24] LABS: TB Interpretation Negative (Negative); TB1 Ag minus Nil 0.06 IU/mL; TB2 Ag minus Nil 0.05 IU/mL
== END 2025-03-30 12:42 | disposition home or self-care (01) ==
LOC: LBO 12:44
PROVIDERS: PCP Nurse Practitioner Adult Health; Visit Provider Nurse Practitioner Family
DX: Z02.1 Encounter for pre-employment examination (principal)
CPT/HCPCS: 36415; 86706; 86787; 86480; 86735; 86762; 86765

== ENCOUNTER 2025-03-31 09:08 | Outpatient (CLI) | payer OTHER, SELFPAY ==
--- NOTE | 2025-03-31 09:00 | DI.RAD_ITS ---
Exam(s) XR HIP LT COMPLETE AP PELVIS EXAM: XR HIP LT COMPLETE AP PELVIS CLINICAL HISTORY: assess alignment, L HIP PAIN M25.552. TECHNIQUE: 2D digital imaging was performed. COMPARISON: No exams were available for comparison FINDINGS: Two views No evidence of pelvic nor hip fracture. No degenerative changes in either hip. Sacroiliac joints normal. Bone density normal. No osseous lesions. IMPRESSION: No significant osseous findings in the pelvis and hips. DATA REPOSITORY: RADIATION DOSE DELIVERED:
== END 2025-03-31 09:28 ==
LOC: DI 09:08
PROVIDERS: PCP Nurse Practitioner Adult Health; Visit Provider Nurse Practitioner Adult Health
DX: M25.552 Pain in left hip (principal)
CPT/HCPCS: 73502

== ENCOUNTER 2025-06-15 16:39 | Emergency (ER) | payer OTHER, SELFPAY ==
[2025-06-15 16:40] VITALS: BP 131/87; PULSE 85; RESP 18; TEMP 36.6; O2SAT 98
--- NOTE | 2025-06-15 16:57 | ED.GENADUL_ITS ---
Discharge Plan Disposition Patient Disposition: Home Condition: Stable Discharge Details Clinical Impression: Contusion of mastoid Primary Care Provider: Dara Downs ED Provider: Gino Ga Home Meds and New Rx's Prescriptions: Continued [place] Saline 0.65 % drops 2 drp intranasal QID PRN (Reason: dry nasal passages) Qty: 50 1RF cholecalciferol (vitamin D3) 50 mcg (2,000 unit) capsule 50 mcg PO DAILY sodium fluoride-pot nitrate [PreviDent 5000 Sensitive] 100 ML paste 100 ml Dental DAILY loratadine 10 mg tablet 10 mg PO DAILY PRN prochlorperazine maleate 5 mg tablet 5 mg PO TID PRN (Reason: headaches) Qty: 30 3RF Rx Instructions: Take 1-2 tablets every 8 hours as needed for headaches or nausea topiramate [Topamax] 100 mg tablet 100 mg PO QHS Qty: 90 3RF Zepbound 2.5 mg/0.5 mL pen injector 2.5 mg subcut QWEEK Qty: 2 0RF Rx Instructions: for 4 weeks Pharm: Pt will pick-up once has insurance 05/27/2025; please keep RX on-file for now. LEIGH Yareli, 05/13/2025 fluticasone propionate 50 mcg/actuation spray,suspension 2 spray intranasal DAILY Qty: 15.8 12RF Rx Instructions: administer into each nostril levalbuterol tartrate [Xopenex HFA] 45 mcg/actuation HFA aerosol inhaler 1 - 2 puff Inhalation q6h PRN (Reason: shortness of breath or wheezing) Qty: 1 12RF pantoprazole [Protonix] 40 mg tablet,delayed release (DR/EC) 40 mg PO DAILY Qty: 90 3RF valacyclovir 1 gram tablet 2,000 mg PO BID PRN (Reason: cold sores) Qty: 12 2RF Rx Instructions: 2 tabs BID for two doses. May use PRN. sertraline 100 mg tablet 100 mg PO DAILY 90 Days Qty: 90 4RF norethindrone (contraceptive) [Jencycla] 0.35 mg tablet 0.35 mg PO DAILY Qty: 84 4RF ibuprofen 600 mg tablet 600 mg PO TID PRN (Reason: pain) Qty: 60 0RF Discharge Instructions Instructions: Minor Contusion ED Additional Instructions: You were seen in the emergency department for the contusion of your left mastoid area, you likely have significant concussion with your nausea but there is no intracranial bleeding or fracture of the skull or temporal bones. Please take regular dose of Tylenol and ibuprofen, perform brain rest activities like low stimuli environments with dim lighting and soft noises and your concussion symptoms should improve over the next week or 2. Please follow-up with your primary care provider return for any neurologic negative changes. Referrals: Dara Downs NP [Primary Care Provider, Medicine] HPI General Date/Time Provider Initiated Documentation: 06/15/25 16:47 . HPI Narrative: 39 year-old female presents to ED today by POV/ambulating with a chief complaint of headache, nausea, dizziness after bumping her L mastoid into the wall while horsing around with her last night. Quality described as generalized headache, pain behind L ear, no radiation to repetitive questioning, vomiting, vision changes, coordination difficulty, endorses photophobia. Severity is described as severe. Palliating factors include nothing specific. Provoking factors include nothing specific. Patient not anticoagulated. Related Data Home Medications ?Medication ?Instructions ?Recorded ?Confirmed sodium fluoride 1.1 %-potassium 100 ml dental DAILY 06/15/25 nitrate 5 % dental paste (PreviDent 5000 Sensitive) loratadine 10 mg tablet 10 mg PO DAILY PRN 08/05/19 06/15/25 sodium chloride 0.65 % nasal drops 2 drp intranasal QI D PRN dry nasal 11/22/23 06/15/25 ([place] Saline) passages #50 mL ibuprofen 600 mg tablet 600 mg PO TID PRN pain #60 t abs 07/15/24 06/15/25 cholecalciferol (vitamin D3) 50 50 mcg PO DAILY 06/15/25 mcg (2,000 unit) capsule prochlorperazine maleate 5 mg 5 mg PO TID PRN headache s #30 tabs 05/12/25 06/15/25 tablet topiramate 100 mg tablet (Topamax) 100 mg PO QHS #90 t abs 05/12/25 06/15/25 tirzepatide (weight loss) 2.5 2.5 mg (0.5 mL) subcut Q WEEK #2 mL 05/13/25 06/15/25 mg/0.5 mL subcutaneous pen injector (Zepbound) fluticasone propionate 50 2 spray intranasal DAILY #15 .8 mL 05/28/25 06/15/25 mcg/actuation nasal spray,suspension levalbuterol tartrate 45 1 - 2 puff inhalation q6h CA N 05/28/25 06/15/25 mcg/actuation aerosol inhaler shortness of breath or w heezing ##1 (Xopenex HFA) pantoprazole 40 mg tablet,delayed 40 mg PO DAILY #90 t abs 05/28/25 06/15/25 release (Protonix) valacyclovir 1 gram tablet 2,000 mg (2 x 1 gram) PO BI D PRN 05/28/25 06/15/25 cold sores #12 tabs norethindrone (contraceptive) 0.35 0.35 mg PO DAILY #8 4 tabs 06/01/25 06/15/25 mg tablet (Jencycla) sertraline 100 mg tablet 100 mg PO DAILY 90 days #90 tabs 06/01/25 06/15/25 Previous Rx's ?Medication ?Instructions ?Recorded sodium chloride 0.65 % nasal drops 2 drp intranasal QI D PRN dry nasal 11/22/23 ([place] Saline) passages #50 mL ibuprofen 600 mg tablet 600 mg PO TID PRN pain #60 t abs 07/15/24 prochlorperazine maleate 5 mg 5 mg PO TID PRN headache s #30 tabs 05/12/25 tablet topiramate 100 mg tablet (Topamax) 100 mg PO QHS #90 t abs 05/12/25 tirzepatide (weight loss) 2.5 2.5 mg (0.5 mL) subcut Q WEEK #2 mL 05/13/25 mg/0.5 mL subcutaneous pen injector (Zepbound) fluticasone propionate 50 2 spray intranasal DAILY #15 .8 mL 05/28/25 mcg/actuation nasal spray,suspension levalbuterol tartrate 45 1 - 2 puff inhalation q6h CA N 05/28/25 mcg/actuation aerosol inhaler shortness of breath or w heezing ##1 (Xopenex HFA) pantoprazole 40 mg tablet,delayed 40 mg PO DAILY #90 t abs 05/28/25 release (Protonix) valacyclovir 1 gram tablet 2,000 mg (2 x 1 gram) PO BI D PRN 05/28/25 cold sores #12 tabs norethindrone (contraceptive) 0.35 0.35 mg PO DAILY #8 4 tabs 06/01/25 mg tablet (Jencycla) sertraline 100 mg tablet 100 mg PO DAILY 90 days #90 tabs 06/01/25 Allergies Allergy/AdvReac Type Severity Reaction Status Date / Time albuterol sulfate (From AdvReac palpitation Verified 06/15/25 16:44 Ventolin HFA) s General Stated Complaint: HeadInjury LUZ: 3 Review of Systems All systems reviewed & are unremarkable except as noted in HPI and below Exam Narrative Exam Narrative: GENERAL APPEARANCE: Well-nourished, non-toxic, awake and alert, atraumatic, no acute distress. SKIN: Warm, pink, dry, intact, without rashes/lesions/ulcerations. HEAD: Normocephalic, left mastoid tenderness with mild ecchymotic changes, no overt hematoma, no crepitus, no hemotympanum bilaterally, normal hair distribution for gender/age. EYES: Normal conjunctiva, no exudates on lids/lashes. ENT: Nares patent, no circumoral cyanosis, no facial swelling NECK: Supple, trachea midline, painless cervical ROM. LUNGS/CHEST: Lungs CTA bilaterally, non-labored respirations, normal A/P diameter, symmetrical expansion, no chest wall deformity HEART (CV/PV): Regular rate and rhythm without murmur, no peripheral edema, no JVD. ABDOMEN: Soft, non-distended, no guarding. MSK: Normal ROM, no swelling/deformity to bilateral UEs or LEs, moving all extremities without weakness, no cyanosis, spine midline without tenderness, normal curvature. NEURO: Mental Status AAOx4 - alert to person, place, time, events No facial droop, no forehead involvement, dysmetria with heel- bundy, FNF Motor: No focal weakness - strength 5/5 in bilateral UEs and LEs, proximal and distal, symmetric. Sensory: sensation intact to light touch globally. Gait normal: patient ambulated without ataxia into ED room. PSYCH: euthymic, cooperative, pleasant, appropriate speech Course Vital Signs Vital signs: Vital Signs Temperature 36.6 C 06/15/25 16:40 Pulse 85 06/15/25 16:40 Respiratory Rate 18 06/15/25 16:40 Blood Pressure 131/87 06/15/25 16:40 Pulse Oximetry 98 06/15/25 16:40 Temperature 36.6 C 06/15/25 16:40 Pulse 85 06/15/25 16:40 Respiratory Rate 18 06/15/25 16:40 Blood Pressure 131/87 06/15/25 16:40 Pulse Oximetry 98 06/15/25 16:40 Pain Level 0 06/15/25 16:40 Medical Decision Making This dictation utilizes [id number] dictation software and may contain unedited grammatical errors. 39 year-old female presents to ED today by POV/ambulating with a chief complaint of headache, nausea, dizziness after bumping her L mastoid into the wall while horsing around with her last night. Quality described as generalized headache, pain behind L ear, no radiation to repetitive questioning, vomiting, vision changes, coordination difficulty, endorses photophobia. Severity is described as severe. Palliating factors include nothing specific. Provoking factors include nothing specific. Patients' medical history: Noncontributory. Family and social history: Noncontributory. Pertinent exam findings / vital signs include left mastoid tenderness with mild ecchymotic changes, no overt hematoma, no crepitus, no hemotympanum bilaterally, normal neuroexam with negative cerebellar signs, benign cardiopulmonary status. Differential / pathologies of concern include concussion, mastoid fracture or other basal skull fracture, less likely ICH. Diagnostic studies of: - CT head without, CT temporal bones without-no acute fractures or intracranial bleeding seen. Interventions of: - 1 g oral Tylenol. ED Course/Assessment/Plan: 39-year-old female presents after bumping her head while trying to pull around with her last night, struck her head on the wall behind the left ear has some mild bruise there but no significant hematoma or crepitus, no hemotympanum and a normal neurological exam with negative head CT and temporal bone CT, counseled on likely concussion syndrome as well as bone bruise to the sensitive area and recommend ice and Tylenol and ibuprofen as tolerated, return to ED criteria for any neurologic changes. Findings not consistent with fracture, intracranial hemorrhage. Disposition of contusion of mastoid. Patient verbalized understanding of the plan and return to ED criteria and engaged in shared decision making. Medical Records Medical records reviewed: Yes I reviewed the patient's medical records. Imaging Data Radiologic Study: Attestation: I personally reviewed and interpreted this imaging study as follows: Imaging: CT Scan Radiologist's impression: EXAM: CT HEAD WO CLINICAL HISTORY: nausea, GRANGER, headstrike last night. TECHNIQUE: Imaging Protocol: Axial computed tomography images with coronal and sagittal reformatted images were created and reviewed COMPARISON: MR MRI - BRAIN W/WO CONTRAST from 12/23/[address] TEMPORAL BONE WO from 06/15/2025 FINDINGS: Ventricles and Extra axial spaces: Normal in size and morphology for the patient's age. Hemorrhage: None. Cerebral parenchyma: No evidence of acute infarct or mass. Midline shift: None. Brainstem/Cerebellum: Normal. Bones: No skull or facial fractures. Visualized Paranasal sinuses:Minimal mucosal thickening at the floor of the left maxillary sinus. The sinuses are otherwise Temporal bones: The mastoid air cells are clear. There is no evidence of fracture. The internal and external auditory canals are unremarkable. Temporomandibular joints are normally aligned. Soft Tissues: Unremarkable. ORBITS: Unremarkable. PITUITARY: Not enlarged. IMPRESSION: Negative CT of the head and temporal bones. PFSH All Active Problems (Updated 06/15/25 @ 17:57 by BREE Arenas) Contusion of mastoid (Acute) Labral tear of left hip joint (Acute) Vitamin D insufficiency (Acute) Bronchitis (Acute) Surveillance for control, oral contraceptives (Acute) Sciatica (Acute) Left brachial plexitis (Acute) Tendinopathy of left biceps tendon (Acute) Tendonitis of left rotator cuff (Acute) Cubital tunnel syndrome on left (Acute) S/P ulnar nerve decompression: 07/15/2024 Left carpal tunnel syndrome (Acute) S/P ECTR: 07/15/2024 Tinea pedis (Acute) Ovarian cyst (Acute) Right. 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) RUQ abdominal pain (Acute) Bile reflux gastritis (Acute) Pelvic pain (Acute) Asthma (Chronic) BMI 38.0-38.9,adult (Acute) Paresthesia of hand, bilateral (Acute) Bilateral carpal tunnel syndrome (Acute) Neck pain of over 3 months duration (Acute) Chondromalacia, left knee (Acute) Neck pain, bilateral (Acute) Jaw pain (Acute) Status migrainosus (Acute) Chronic pain of left knee (Acute) Per [facility] [place] from 05/05/21 Chronic pain of right knee (Acute) Per [facility] [place] from 05/05/21 Patellofemoral stress syndrome (Acute) Per [facility] [place] from 05/05/21 Myalgia (Acute) Per [facility] note from 05/05/21 Seasonal allergic rhinitis (Acute) Paresthesia of both feet (Acute) Verruca plantaris (Acute) 12/08/20 treated at [facility] - cryotherapy 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) 12/08/20 [facility] Neoplasm of uncertain behavior, unspecified (Acute) 12/08/20 [facility], biopsy done Posterior auricular pain of right ear (Acute) 12/08/20 [facility] - pressure reducing strategies provided Positive JAMES (antinuclear antibody) (Acute) Skin lesions (Acute) Screening for cholesterol level (Acute) Fatigue (Acute) Joint stiffness (Acute) Joint pain (Acute) Headache (Acute) Cough (Acute) Migraine headache without aura (Acute) 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 Results will not change outcome. Migraine with aura (Chronic 05/08/13) Rare; Visual auras NEG MRI 2012 GERD (gastroesophageal reflux disease) (Chronic) Medical History Abnormal urine Per [facility] note from 05/05/21 Abdominal discomfort in left upper quadrant Heartburn (05/08/13) ranitidine 150mg BID Allergic rhinitis Migraines Epistaxis Surgical History History of esophagogastroduodenoscopy (~07/2023) path Cholecystectomy 2006 section 08/2010 x2 Family History Mother Essential hypertension Father Rheumatoid arthritis Esophageal cyst Sister Diabetes Not sure type Brain tumor (benign) Sister Essential hypertension Asthma Paternal Grandmother , of PE Diabetes Pulmonary embolism Maternal Grandfather Myocardial infarct Social History Smoking/Tobacco Use Status: Former Tobacco Use Quit Date: 08/27/08 Tobacco: How many years used: 5 Second Hand Exposure: No Smoking risk assessment performed?: Yes Alcohol Intake: current Alcohol Intake frequency: a few times a month Alcohol type: hard liquor Drug use: Never Substance use type: does not use Adopted: No Caregiver/Support person: No Foster care: No Household members: spouse and children Housing: house Number of Children: 2 number of grandchildren: 0 Communication Needs: None Education Level: middle school Do you need help understanding health information?: Rarely 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 Pets and animals: Yes (cats, dogs, rabbit, chicken) Sexually active: Yes Do you think of yourself as: straight/heterosexual Current gender identity: female What is your relationship status?: How often do you talk on the phone with friends or family?: once per week How often do you get together with friends or relatives?: once per week Do you belong to any clubs or organized social groups?: no Panel score (0-1 are the most socially isolated patients): 1 What type of physical activity do you participate in: walking Duration: 15-30 minutes/day Frequency: 1-2 times per week Special curtis needs: No Seatbelt use: always Helmet use: Yes Helmet use: always Drive intox or ride w/intox airport driver: No Working smoke detector in home: Yes Fire extinguisher in home: Yes Carbon monox detector in home: Yes Do you feel safe at home: Yes Do you feel safe in your relationship?: Yes Victim of physical abuse: No Victim of emotional abuse: No Female Reproductive History Menstrual control method: other (partner with vasectomy) History History 3 Para 3 Hx # Term Pregnancies Multiple births Hx # Pregnancies Ectopic pregnancies AB induced Hx Number of Living Children AB spontaneous
--- NOTE | 2025-06-15 17:21 | DI.CT_ITS ---
Exam(s) CT TEMPORAL BONE WO CT HEAD WO EXAM: CT HEAD WO CLINICAL HISTORY: nausea, GRANGER, headstrike last night. TECHNIQUE: Imaging Protocol: Axial computed tomography images with coronal and sagittal reformatted images were created and reviewed COMPARISON: MR MRI - BRAIN W/WO CONTRAST from 12/23/[address] TEMPORAL BONE WO from 06/15/2025 FINDINGS: Ventricles and Extra axial spaces: Normal in size and morphology for the patient's age. Hemorrhage: None. Cerebral parenchyma: No evidence of acute infarct or mass. Midline shift: None. Brainstem/Cerebellum: Normal. Bones: No skull or facial fractures. Visualized Paranasal sinuses:Minimal mucosal thickening at the floor of the left maxillary sinus. The sinuses are otherwise Temporal bones: The mastoid air cells are clear. There is no evidence of fracture. The internal and external auditory canals are unremarkable. Temporomandibular joints are normally aligned. Soft Tissues: Unremarkable. ORBITS: Unremarkable. PITUITARY: Not enlarged. IMPRESSION: Negative CT of the head and temporal bones. RADIATION DOSE DELIVERED: Total DLP DATA REPOSITORY: All CT scans at this facility are submitted to the National Radiology Data Registry (NRDR) Dose Index Registry (DIR) with the [employer] (ACR). RADIATION OPTIMIZATION: All CT scans at this facility use at least one of these dose optimization techniques: automated exposure control; mA and/or kV adjustment per patient size (includes targeted exams where dose is matched to clinical indication); or iterative reconstruction.
[2025-06-15] MEDS: Acetaminophen 500 MG TAB 1000 MG PO (17:41)
[2025-06-15 18:08] VITALS: BP 142/92; PULSE 76; RESP 22; O2SAT 100
== END 2025-06-15 18:15 | disposition home or self-care (01) ==
PROVIDERS: Emergency Provider Physician Assistant; PCP Nurse Practitioner Adult Health
DX: S00.83XA Contusion of other part of head, initial encounter (principal); R11.0 Nausea; Y93.83 Activity, rough housing and horseplay; W22.8XXA Striking against or struck by other objects, initial encounter; R42 Dizziness and giddiness
CPT/HCPCS: 99283; 99284; 70450; 70480

== ENCOUNTER 2025-06-16 00:17 | Outpatient (CLI) | payer OTHER, SELFPAY ==
--- NOTE | 2025-06-16 06:45 | DI.MRI_ITS ---
Exam(s) MR LOWER JOINT LT WO EXAM: MR LOWER JOINT LT WO CLINICAL HISTORY: L HIP PAIN,labral tear lt hip ojint,s73.192a TECHNIQUE: Multiplanar multisequence MRI of left hip was performed COMPARISON: CR XR HIP LT COMPLETE AP PELVIS from 03/31/2025 FINDINGS: Bones: There is no evidence of a fracture or avascular necrosis. No significant joint effusion or labral injury is present. No bone marrow edema is seen. The SI joints and symphysis pubis are well maintained. Musculotendinous structures: Musculotendinous structures demonstrate no abnormality. There is very mild hyperintense signal on the T2 weighted images lateral to the left greater trochanter. There is mild increased signal around the adjacent tendon.. Pelvis: There is a 3.4 x 4.2 cm simple cyst on the right ovary. This is likely physiologic. IMPRESSION: 1. Unremarkable labrum in the left hip. If there is continued clinical concern, an MR arthrogram should be considered. 2. Mild hyperintense signal seen adjacent to the legs left greater trochanter. This represent a trochanteric bursitis or gluteus medius/minimus tear/tendinosis. DATA REPOSITORY:
== END 2025-06-16 00:37 ==
LOC: DI 00:17
PROVIDERS: PCP Nurse Practitioner Adult Health; Visit Provider Student in an Organized Health Care Education/Training Program
DX: S73.192D Other sprain of left hip, subsequent encounter (principal); X58.XXXD Exposure to other specified factors, subsequent encounter
CPT/HCPCS: 73721

== ENCOUNTER 2025-06-18 09:30 | Outpatient (CLI) | payer OTHER, SELFPAY ==
--- NOTE | 2025-06-18 10:15 | DI.RAD_ITS ---
Exam(s) XR CERVICAL SPINE COMP 4-5V EXAM: XR CERVICAL SPINE COMP 4-5V CLINICAL HISTORY: neck pain, CERVICALGIA, M54.2. TECHNIQUE: 2D digital imaging was performed. Five views were performed. COMPARISON: No exams were available for comparison FINDINGS: BONES: No fracture or destructive lesion. Vertebral bodies are unremarkable. The left neural foramen are suboptimally profiled. No right neural foraminal narrowing. DISKS: Intervertebral disc spaces are maintained. ALIGNMENT: Cervical spinal alignment is within normal limits. The odontoid and atlantoaxial articulations are normal. SOFT TISSUE: Normal. The lung apices are clear. IMPRESSION: Unremarkable radiographs of the cervical spine. DATA REPOSITORY: RADIATION DOSE DELIVERED:
--- NOTE | 2025-06-18 10:17 | DI.RAD_ITS ---
Exam(s) XR SHOULDER LT COMPLETE 2+V EXAM: XR SHOULDER LT COMPLETE 2+V CLINICAL HISTORY: contusion of L shoulder, S40.012A. TECHNIQUE: 2D digital imaging was performed. Three views. COMPARISON: CR XR SHOULDER LT COMPLETE 2+V from 10/06/2024 FINDINGS: BONES: No acute fracture is present. No bony destructive lesion is seen. JOINTS: No dislocation present. The glenohumeral joint space is maintained. The AC joint is not widened. SOFT TISSUE: Normal. IMPRESSION: Unremarkable radiographs of the left shoulder. DATA REPOSITORY: RADIATION DOSE DELIVERED:
== END 2025-06-18 09:50 ==
LOC: DI 09:30
PROVIDERS: PCP Nurse Practitioner Adult Health; Visit Provider Family Medicine
DX: S40.012A Contusion of left shoulder, initial encounter (principal); M54.2 Cervicalgia
CPT/HCPCS: 72050; 73030

== ENCOUNTER 2025-08-25 11:51 | Outpatient (CLI) | payer OTHER, SELFPAY ==
--- NOTE | 2025-08-25 10:45 | DI.RAD_ITS ---
Exam(s) XR KNEE LT 3V AP,LAT,DEEPAK EXAM: XR KNEE LT 3V AP,LAT,DEEPAK CLINICAL HISTORY: LEFT KNEE PAIN. TECHNIQUE: 2D digital imaging was performed. Three views. COMPARISON: CR XR KNEE LT 3V AP,LAT,DEEPAK from 11/23/2021 FINDINGS: BONES: No acute fracture is present. No bony destructive lesion is seen. JOINTS: The knee is normally aligned. The joint spaces are maintained. Minimal periarticular spurring. No joint effusion is seen. SOFT TISSUE: Normal. IMPRESSION: Minimal degenerative changes. DATA REPOSITORY: RADIATION DOSE DELIVERED:
== END 2025-08-25 11:52 | disposition home or self-care (01) ==
LOC: DIORS 11:51
PROVIDERS: PCP Nurse Practitioner Adult Health; Visit Provider Physician Assistant
DX: M25.562 Pain in left knee (principal); M17.12 Unilateral primary osteoarthritis, left knee
CPT/HCPCS: 73562